=== PATIENT | male | born 1975 | race Hispanic/Latino ===

== ENCOUNTER 2017-05-15 20:39 | Emergency (ER) | payer SELFPAY ==
[2017-05-15 21:03] VITALS: BP 152/91; RESP 18; TEMP 99.2; BMI 19.2
[2017-05-15 21:08] VITALS: PULSE 107; O2SAT 96
--- NOTE | 2017-05-15 21:36 | ED PDOC ---
Arrival/HPI - General Chief Complaint: Dental Pain Time Seen by Provider: 05/15/17 21:00 Historian: Patient - History of Present Illness Narrative History of Present Illness (Text): 05/15/17 21:48 A 41 year old male presents to the emergency department complaining of right upper tooth pain for the past 6 days. Patient notes ear pain but denies any vision changes or any other complaints at this time. Patient smokes and admits to drinking alcohol today. Symptom Onset: Sudden Symptom Course: Unchanged Activities at Onset: Rest Context: Home Past Medical History - Provider Review Nursing Documentation Reviewed: Yes - Infectious Disease Hx of Infectious Diseases: None - Tetanus Immunization Tetanus Immunization: Unknown - Past Medical History Past Medical History: No Previous - Cardiac Hx Cardiac Disorders: Yes Hx Hypertension: Yes - Pulmonary Hx Respiratory Disorders: No Hx Tuberculosis: No - Neurological Hx Neurological Disorder: No HX Cerebrovascular Accident: No Hx Seizures: No - HEENT Hx HEENT Disorder: No - Renal Hx Renal Disorder: No - Endocrine/Metabolic Hx Endocrine Disorders: No - Hematological/Oncological Hx Blood Disorders: No Hx Cancer: No - Integumentary Hx Dermatological Disorder: No - Musculoskeletal/Rheumatological Hx Musculoskeletal Disorders: No Hx Falls: No - Gastrointestinal Hx Gastrointestinal Disorders: No - Genitourinary/Gynecological Hx Genitourinary Disorders: No Hx Sexually Transmitted Diseases: No - Psychiatric Hx Psychophysiologic Disorder: Yes Hx Depression: Yes Hx Emotional Abuse: No Hx Physical Abuse: No Hx Substance Use: Yes Other/Comment: SUBSTANCE ABUSE PROBLEM ALCOHOL - Past Surgical History Past Surgical History: No Previous - Anesthesia Hx Anesthesia: Yes Hx Anesthesia Reactions: No Hx Malignant Hyperthermia: No - Suicidal Assessment Feels Threatened In Home Enviroment: No Family/Social History - Physician Review Nursing Documentation Reviewed: Yes Family/Social History: No Known Family HX Smoking Status: Heavy Smoker > 10 Cigarettes Daily Hx Alcohol Use: Yes Amount per day: 3 Hx Substance Use: Yes Hx Substance Use Treatment: No Allergies/Home Meds Allergies/Adverse Reactions: Allergies Penicillins Allergy (Verified 05/15/17 21:03) RASH Review of Systems - Review of Systems Constitutional: absent: Fevers Eyes: absent: Vision Changes ENT: Other (ear pain and r upper tooth pain) Respiratory: absent: SOB, Cough Cardiovascular: absent: Chest Pain Physical Exam Vital Signs Reviewed: Yes Vital Signs Temp Pulse Resp BP Pulse Ox 05/15/17 21:04 99.2 F 107 H 18 152/91 H 96 05/15/17 21:01 99.2 F 97 H 18 152/91 H 97 Temperature: Afebrile Blood Pressure: Hypertensive Pulse: Regular Respiratory Rate: Normal Appearance: Positive for: Well-Appearing, Non-Toxic, Comfortable Pain Distress: None Mental Status: Positive for: Alert and Oriented X 3 - Systems Exam Head: Present: Atraumatic, Normocephalic. No: Other (facial swelling) Pupils: Present: PERRL Conjunctiva: Present: Normal Mouth: Present: Moist Mucous Membranes, Other (cavity between upper R 2nd premolar and 1st molar with tenderness at gums; no facial erythema, asymetry, swelling) Pharnyx: No: ERYTHEMA, EXUDATE, TONSILS ENLARGED, Peritonsilar Swelling, Uvular Deviation, Muffled/Hoarse Voice, Strider, Soft Palate/Uvular Edema, Other ( swelling) Neck: Present: Normal Range of Motion. No: Other (swelling; adenopathy) Respiratory/Chest: No: Respiratory Distress, Accessory Muscle Use Neurological: Present: GCS=15, CN II-XII Intact, Speech Normal Skin: Present: Warm, Dry, Normal Color. No: Rashes Psychiatric: Present: Alert, Oriented x 3, Normal Insight, Normal Concentration Medical Decision Making ED Course and Treatment: 05/15/17 21:32 Impression: A 41 year old male with tooth and ear pain. Differential Diagnosis included but are not limited to: dental infection, no evidence of abscess or hipolito's Plan: -- Cleocin, Toradol, Percocet -- Reassess and disposition Prior Visits: Notes and results from previous visits were reviewed. Patient last reported to the emergency department on 09/11/16 for evaluation of cellulitis to left posterior thigh. Progress Notes: 05/15/17 21:37 Patient has alcohol on breath, clinically sober. Will discharge patient on antibiotic and need follow up. 05/15/17 22:21 Patient will be d/c on clindamycin, naprosyn, and tramadol and will need to f/u dental. - Medication Orders Current Medication Orders: Discontinued Medications Clindamycin HCl (Cleocin) 300 mg PO STAT STA PRN Reason: Protocol Stop: 05/15/17 21:37 Last Admin: 05/15/17 22:03 Dose: 300 mg Ketorolac Tromethamine (Toradol) 60 mg IM STAT STA Stop: 05/15/17 21:37 Last Admin: 05/15/17 22:03 Dose: 60 mg Oxycodone/Acetaminophen (Percocet 5/325 Mg Tab) 1 tab PO STAT STA Stop: 05/15/17 21:38 Last Admin: 05/15/17 22:03 Dose: 1 tab - Scribe Statement The provider has reviewed the documentation as recorded by the Juan A Briceño Provider Scribe Attestation: All medical record entries made by the Scribe were at my direction and personally dictated by me. I have reviewed the chart and agree that the record accurately reflects my personal performance of the history, physical exam, medical decision making, and the department course for this patient. I have also personally directed, reviewed, and agree with the discharge instructions and disposition. Disposition/Present on Arrival - Present on Arrival Any Indicators Present on Arrival: No History of DVT/PE: No History of Uncontrolled Diabetes: No Urinary Catheter: No History of Decub. Ulcer: No History Surgical Site Infection Following: None - Disposition Have Diagnosis and Disposition been Completed?: Yes Diagnosis: Dental infection Disposition: HOME/ ROUTINE Disposition Time: 22:10 Patient Plan: Discharge Condition: GOOD Discharge Instructions (ExitCare): Toothache (ED) Additional Instructions: Stop alcohol use. Make sure you fill the antibiotic prescription and complete the entire course of antibiotics. Follow up with dentist. Return to the emergency department if any new concerning symptoms. Prescriptions: Clindamycin [Cleocin] 2 cap PO Q6H #80 cap Naproxen [Naprosyn] 500 mg PO BID PRN #30 tab PRN Reason: Pain traMADol [Ultram] 1 tab PO Q8H PRN #15 tab PRN Reason: Pain, Severe (8-10) Referrals: Jordan Man MD [Primary Care Provider] - Follow up with primary Fortino Schafer DMD [Non-Staff] - Follow up with primary
[2017-05-15] MEDS ORDERED: Oxycodone/Acetaminophen 5/325 mg Tab PO STA (21:37)
== END 2017-05-15 22:30 | disposition home or self-care (01) ==
LOC: ED 20:39
DX: K04.7 Periapical abscess without sinus (principal)
CPT/HCPCS: 96372; 99282; J1885

== ENCOUNTER 2017-06-10 18:51 | Emergency (ER) | payer SELFPAY ==
[2017-06-10 18:52] VITALS: BMI 19.2
[2017-06-10 19:39] VITALS: BP 132/68; PULSE 72; RESP 18; TEMP 98.4; O2SAT 99
[2017-06-10] MEDS ORDERED: Tmp-Smz 800 mg-160 mg DS Tab PO STA (19:51)
--- NOTE | 2017-06-10 19:55 | ED PDOC ---
Arrival/HPI - General Chief Complaint: Abnormal Skin Integrity Time Seen by Provider: 06/10/17 19:16 - History of Present Illness Narrative History of Present Illness (Text): 06/10/17 19:52 41 y/o male, allergic to penicillin, c/o painful and itching rash on the both thigh and rt. hip region x 3 days with on change in soap/clothing/detergent. Pt. wears jeans and belt, admits sweats alot and been scratching the rt. hip and both inner thigh region, no fever or chills, no penile discharge or testicular swelling, no palpitation, no night sweat, no other medical or psychological complaints. Past Medical History - Provider Review Nursing Documentation Reviewed: Yes - Infectious Disease Hx of Infectious Diseases: None - Tetanus Immunization Tetanus Immunization: Unknown - Past Medical History Past Medical History: No Previous - Cardiac Hx Cardiac Disorders: Yes Hx Hypertension: Yes - Pulmonary Hx Respiratory Disorders: No Hx Tuberculosis: No - Neurological Hx Neurological Disorder: No HX Cerebrovascular Accident: No Hx Seizures: No - HEENT Hx HEENT Disorder: No - Renal Hx Renal Disorder: No - Endocrine/Metabolic Hx Endocrine Disorders: No - Hematological/Oncological Hx Blood Disorders: No Hx Cancer: No - Integumentary Hx Dermatological Disorder: No - Musculoskeletal/Rheumatological Hx Musculoskeletal Disorders: No Hx Falls: No - Gastrointestinal Hx Gastrointestinal Disorders: No - Genitourinary/Gynecological Hx Genitourinary Disorders: No Hx Sexually Transmitted Diseases: No - Psychiatric Hx Psychophysiologic Disorder: Yes Hx Depression: Yes Hx Emotional Abuse: No Hx Physical Abuse: No Hx Substance Use: Yes Other/Comment: SUBSTANCE ABUSE PROBLEM ALCOHOL - Past Surgical History Past Surgical History: No Previous - Anesthesia Hx Anesthesia: Yes Hx Anesthesia Reactions: No Hx Malignant Hyperthermia: No - Suicidal Assessment Feels Threatened In Home Enviroment: No Family/Social History - Physician Review Nursing Documentation Reviewed: Yes Family/Social History: Unknown Family HX Smoking Status: Heavy Smoker > 10 Cigarettes Daily Hx Alcohol Use: Yes Amount per day: 3 Hx Substance Use: Yes Hx Substance Use Treatment: No Allergies/Home Meds Allergies/Adverse Reactions: Allergies Penicillins Allergy (Verified 05/15/17 21:03) RASH Review of Systems - Review of Systems Constitutional: absent: Fatigue, Fevers Eyes: absent: Vision Changes ENT: absent: Hearing Changes Respiratory: absent: SOB, Cough Cardiovascular: absent: Chest Pain Gastrointestinal: absent: Abdominal Pain, Nausea, Vomiting Skin: Rash, Pruritis, Skin Lesions. absent: Laceration, Abscess, Ulcer, Cellulitis Neurological: absent: Headache, Dizziness Hemo/Lymphatic: absent: Adenopathy, Easy Bleeding Physical Exam Vital Signs Reviewed: Yes Vital Signs Temp Pulse Resp BP Pulse Ox 06/10/17 19:35 98.4 F 72 18 132/68 99 Temperature: Afebrile Blood Pressure: Normal Pulse: Regular Respiratory Rate: Normal Appearance: Positive for: Well-Appearing, Non-Toxic, Comfortable Pain Distress: Moderate Mental Status: Positive for: Alert and Oriented X 3 - Systems Exam Head: Present: Atraumatic, Normocephalic Pupils: Present: PERRL Extroacular Muscles: Present: EOMI Conjunctiva: Present: Normal Mouth: Present: Moist Mucous Membranes Neck: Present: Normal Range of Motion Respiratory/Chest: Present: Clear to Auscultation, Good Air Exchange. No: Respiratory Distress, Accessory Muscle Use Cardiovascular: Present: Regular Rate and Rhythm, Normal S1, S2. No: Murmurs Abdomen: Present: Normal Bowel Sounds. No: Tenderness, Distention, Peritoneal Signs Back: Present: Normal Inspection Upper Extremity: Present: Normal Inspection. No: Cyanosis, Edema Lower Extremity: Present: Normal Inspection. No: Edema Neurological: Present: GCS=15, CN II-XII Intact, Speech Normal Skin: Present: Warm, Dry, Rashes (visible inner bilateral thigh skin fold visible papule round rash appear to be tinea dermatitis along with the rt. hip region and there is mild skin breaking, no obvious cellulitis or streaking, no ulcers. ), Normal Color Psychiatric: Present: Alert, Oriented x 3, Normal Insight, Normal Concentration Medical Decision Making ED Course and Treatment: 06/10/17 19:54 -toradol IM and bactrim ds -Discharge home with lotrisone cream, bactrim ds, motrin, zyrtec, wear loose clothing and pants at home, wear boxers and not tight clothing, follow up with your own pmd and recruitment advertising manager within 2 days, return to the ER for any new or worsening signs or symptoms. - Medication Orders Current Medication Orders: Ketorolac Tromethamine (Toradol) 60 mg IM STAT STA Stop: 06/10/17 19:52 Trimethoprim/Sulfamethoxazole (Bactrim Ds Tab) 1 tab PO STAT STA PRN Reason: Protocol Stop: 06/10/17 19:52 - PA / SQUADRON WORKER / Resident Statement MD/DO has reviewed & agrees with the documentation as recorded. Disposition/Present on Arrival - Present on Arrival Any Indicators Present on Arrival: No History of DVT/PE: No History of Uncontrolled Diabetes: No Urinary Catheter: No History of Decub. Ulcer: No History Surgical Site Infection Following: None - Disposition Have Diagnosis and Disposition been Completed?: Yes Diagnosis: Tinea cruris, Dermatitis Disposition: HOME/ ROUTINE Disposition Time: 19:56 Patient Plan: Discharge Condition: GOOD Additional Instructions: -Discharge home with lotrisone cream, bactrim ds, motrin, zyrtec, wear loose clothing and pants at home, wear boxers and not tight clothing, follow up with your own pmd and recruitment advertising manager within 2 days, return to the ER for any new or worsening signs or symptoms. Prescriptions: Clotrimazole/Betamethasone [Lotrisone] 1 appful TOP BID #60 g DiphenhydrAMINE [Benadryl] 25 mg PO QID PRN #30 cap PRN Reason: Other Ibuprofen [Motrin Tab] 600 mg PO QID PRN #25 tab PRN Reason: Other Sulfamethoxazole/Trimethoprim [Bactrim Ds Tablet] 1 each PO BID #18 tablet Referrals: Angelica Benavidez MD [Staff Provider] - Follow up with primary Forms: [employer] ([place]ian)
== END 2017-06-10 20:14 | disposition home or self-care (01) ==
LOC: ED 18:51
DX: B35.6 Tinea cruris (principal); L30.9 Dermatitis, unspecified
CPT/HCPCS: 96372; 99281; J1885

== ENCOUNTER 2017-06-26 20:25 | Emergency (ER) | payer SELFPAY ==
[2017-06-26 20:25] VITALS: BMI 19.2
--- NOTE | 2017-06-26 20:57 | ED PDOC ---
Arrival/HPI - General Historian: Patient - History of Present Illness Time/Duration: Prior to Arrival <Sheila Lam - Last Filed: 06/27/17 01:29> <Heber Bucio - Last Filed: 06/27/17 06:33> - General Chief Complaint: Alcohol Ingestion Time Seen by Provider: 06/26/17 20:33 - History of Present Illness Narrative History of Present Illness (Text): 06/26/17 20:54 41-year-old male presents to brought in by EMS for alcohol intoxication. Patient admits to drinking alcohol today. Patient states that he's been fighting with his so he went out drinking. He denies fevers or chills. Denies chest pain or shortness of breath. Denies abdominal pain. Patient states he has been on a lot more depressed lately. Patient states that he could shoot himself in the head. Denies vomiting or diarrhea. No other complaints (Sheila Lam) Past Medical History - Provider Review Nursing Documentation Reviewed: Yes - Travel History Have you recently traveled outside [place] w/in the past 3 mons?: No - Infectious Disease Hx of Infectious Diseases: None - Tetanus Immunization Tetanus Immunization: Unknown - Past Medical History Past Medical History: No Previous - Cardiac Hx Cardiac Disorders: Yes Hx Hypertension: Yes - Pulmonary Hx Respiratory Disorders: No Hx Tuberculosis: No - Neurological Hx Neurological Disorder: No HX Cerebrovascular Accident: No Hx Seizures: No - HEENT Hx HEENT Disorder: No - Renal Hx Renal Disorder: No - Endocrine/Metabolic Hx Endocrine Disorders: No - Hematological/Oncological Hx Blood Disorders: No Hx Cancer: No - Integumentary Hx Dermatological Disorder: No - Musculoskeletal/Rheumatological Hx Musculoskeletal Disorders: No Hx Falls: No - Gastrointestinal Hx Gastrointestinal Disorders: No - Genitourinary/Gynecological Hx Genitourinary Disorders: No Hx Sexually Transmitted Diseases: No - Psychiatric Hx Psychophysiologic Disorder: Yes Hx Depression: Yes Hx Emotional Abuse: No Hx Physical Abuse: No Hx Substance Use: Yes Other/Comment: SUBSTANCE ABUSE PROBLEM ALCOHOL - Past Surgical History Past Surgical History: No Previous - Anesthesia Hx Anesthesia: Yes Hx Anesthesia Reactions: No Hx Malignant Hyperthermia: No - Suicidal Assessment Feels Threatened In Home Enviroment: No <Sheila Lam - Last Filed: 06/27/17 01:29> Family/Social History - Physician Review Nursing Documentation Reviewed: Yes Family/Social History: Unknown Family HX Smoking Status: Heavy Smoker > 10 Cigarettes Daily Hx Alcohol Use: Yes Amount per day: 3 Hx Substance Use: Yes Hx Substance Use Treatment: No <Sheila Lam - Last Filed: 06/27/17 01:29> Allergies/Home Meds <Sheila Lam - Last Filed: 06/27/17 01:29> <Heber Bucio - Last Filed: 06/27/17 06:33> Allergies/Adverse Reactions: Allergies Penicillins Allergy (Verified 05/15/17 21:03) RASH Review of Systems - Review of Systems Constitutional: absent: Fatigue, Fevers Cardiovascular: absent: Chest Pain, Palpitations Gastrointestinal: absent: Abdominal Pain, Nausea, Vomiting Musculoskeletal: Arthralgias (right sided facial pain) Neurological: absent: Headache Psychiatric: Depression, Suicidal Ideation <Sheila Lam - Last Filed: 06/27/17 01:29> Physical Exam Vital Signs Reviewed: Yes Temperature: Afebrile Blood Pressure: Normal Pulse: Regular Respiratory Rate: Normal Appearance: Positive for: Well-Appearing, Non-Toxic, Comfortable Pain Distress: None Mental Status: Positive for: Alert and Oriented X 3 - Systems Exam Head: Present: Abrasion (abrasions noted to forehead), Other (+ minimal right sided facial tenderness) Pupils: Present: PERRL Conjunctiva: Present: Normal Mouth: Present: Moist Mucous Membranes Nose (External): Present: Atraumatic Neck: Present: Normal Range of Motion. No: MIDLINE TENDERNESS, Paraspinal Tenderness Respiratory/Chest: Present: Clear to Auscultation Cardiovascular: Present: Regular Rate and Rhythm Abdomen: No: Tenderness, Distention, Rebound, Guarding Back: Present: Normal Inspection. No: Midline Tenderness, Paraspinal Tenderness Upper Extremity: Present: Normal ROM Lower Extremity: Present: Normal ROM Skin: Present: Warm, Dry Psychiatric: Present: Alert, Suicidal Ideation, Intoxicated <Sheila Lam - Last Filed: 06/27/17 01:29> Medical Decision Making <Sheial Lam - Last Filed: 06/27/17 01:29> <Heber Bucio - Last Filed: 06/27/17 06:33> ED Course and Treatment: 06/26/17 20:57 Patient is nontoxic well-appearing in no distress vital signs are stable. intoxicated. CBC WNL CMP WNL Tylenol WNL Salicylate WNL Alcohol level: 317 Urine drug screen: wnl UA; wnl cxr: wnl ekg normal sinus rhythm at 96 bpm normal axis normal intervals no ST elevations pt intoxicated; became aggressive in er; ativan 2mg IM given. CT Head: Brain: Ventricles are normal in size and configuration. There is no midline shift. There is prominence of sulci and gyri greater than expected for a patient of this age. There are no intra-axial or extra-axial mass lesions or areas of hemorrhage. There are no abnormal fluid collections. White-white differentiation is maintained. Ventricles: See above. Bones: Cranial vault is intact. Soft tissues: unremarkable Sinuses: There is no acute sinusitis. Ears and mastoids: Middle ears and mastoids are unremarkable Orbits: Orbital contents are unremarkable. IMPRESSION: No acute intracranial abnormality CT Maxillofacial: Bones/joints: There are no displaced nasal bone fractures. There is deviation of the bony septum to the right. No acute nasal septal fractures identified. There has been a right medial antrectomy with a large bony defect. No facial bone fractures are identified. Soft tissues: There is frontal and facial soft tissue swelling in the midline. There is soft tissue swelling over the nose. There are no facial masses Orbits: Orbital contents are unremarkable. Sinuses: There is no acute sinusitis. Middle ears and mastoids: Middle ears and mastoids are unremarkable. Dental: Streak artifact from dental fillings degrades image quality. There are apical erosions in the mandible on the left There are apical erosions in the maxilla bilaterally. Brain: No focal abnormalities are seen in visualized portion of the brain. IMPRESSION: No acute facial bone fractures; dental disease 06/27/17 01:23 case signed out to dr. bucio pending sobriety and PES evaluation. (Sheila Lam) 06/27/17 01:30 Case endorsed to me by JOSE Lam, pending sobriety and PES evaluation. 06/27/17 06:00 Attempt at interviewing pt. by [facility] was unsuccessful as pt. still with signs of intoxication 06/27/17 07:00 Case endorsed to pending sobriety/PES evaluation. (Heber Bucio ) - Lab Interpretations Lab Results: 06/26/17 23:21 06/26/17 23:21 Lab Results 06/27/17 00:10: Urine Opiates Screen Negative, Urine Methadone Screen Negative, Ur Barbiturates Screen Negative, Ur Phencyclidine Scrn Negative, Ur Amphetamines Screen Negative, U Benzodiazepines Scrn Negative, U Oth Cocaine Metabols Negative, U Cannabinoids Screen Negative 06/27/17 00:10: Urine Color Yellow, Urine Appearance Clear, Urine pH 6.0, Ur Specific Transfer >= 1.030, Urine Protein Negative, Urine Glucose (UA) Negative, Urine Ketones Negative, Urine Blood Negative, Urine Nitrate Negative, Urine Bilirubin Negative, Urine Urobilinogen 0.2, Ur Leukocyte Esterase Negative 06/26/17 23:21: Alcohol, Quantitative 317 H* 06/26/17 23:21: Salicylates < 1 L, Acetaminophen < 10.0 L 06/26/17 23:21: Sodium 148, Potassium 4.5, Chloride 110, Carbon Dioxide 22, Anion Gap 21 H, BUN 6 L, Creatinine 0.6, Est GFR ( Amer) > 60, Est GFR ( Non-Af Amer) > 60, Random Glucose 119 H, Calcium 9.0, Total Bilirubin 0.4, AST 79 H, ALT 34, Alkaline Phosphatase 67, Total Protein 8.1, Albumin 4.4, Globulin 3.7, Albumin/Globulin Ratio 1.2 06/26/17 23:21: WBC 4.6 D, RBC 4.78, Hgb 16.4, Hct 45.9, MCV 96.0, MCH 34.3, MCHC 35.7, RDW 15.8 H, Plt Count 164, MPV 9.4, Gran % 27.3 L, Lymph % (Auto) 61.0 H, [place] % (Auto) 9.1 H, Eos % (Auto) 2.2, Baso % (Auto) 0.4, Gran # 1.26 L , Lymph # 2.8, [place] # 0.4, Eos # 0.1, Baso # 0.02 - RAD Interpretation Radiology Orders: 06/26/17 20:50 HEAD W/O CONTRAST [CT] Stat MAXILLOFACIAL W/O CONTRAST [CT] Stat CHEST PORTABLE [RAD] Stat - Medication Orders Current Medication Orders: Discontinued Medications Lorazepam (Ativan) 2 mg IM ONCE ONE PRN Reason: Protocol Stop: 06/27/17 01:11 Last Admin: 06/27/17 01:25 Dose: 2 mg - PA / PRELIMINARY SCHOOL PSYCHOLOGIST / Resident Statement VENECIA has reviewed & agrees with the documentation as recorded. / has examined the patient and agrees with the treatment plan. <Heber Bucio - Last Filed: 06/27/17 06:33> Disposition/Present on Arrival - Present on Arrival Any Indicators Present on Arrival: No History of DVT/PE: No History of Uncontrolled Diabetes: No Urinary Catheter: No History of Decub. Ulcer: No History Surgical Site Infection Following: None <Sheila Lam - Last Filed: 06/27/17 01:29> - Present on Arrival Any Indicators Present on Arrival: No - Disposition Have Diagnosis and Disposition been Completed?: Yes Disposition Time: 07:00 <Heber Bucio - Last Filed: 06/27/17 06:33> - Disposition Diagnosis: Depression, Alcohol intoxication Condition: STABLE Forms: [employer] (Libyan)
--- NOTE | 2017-06-26 22:35 | CT ---
EXAM: CT Head Without Intravenous Contrast CLINICAL HISTORY: 41 years old, male; Injury or trauma; Fall; Initial encounter; Swelling (edema); Additional info: ETOH, head injury TECHNIQUE: Axial computed tomography images of the head/brain without intravenous contrast. All CT scans at this facility use one or more dose reduction techniques, viz.: automated exposure control; ma/kV adjustment per patient size (including targeted exams where dose is matched to indication; i.e. head); or iterative reconstruction technique. EXAM DATE/TIME: 06/26/2017 8:50 PM COMPARISON: CT - HEAD W/O CONTRAST 04/06/2016 3:08:55 AM FINDINGS: Brain: Ventricles are normal in size and configuration. There is no midline shift. There is prominence of sulci and gyri greater than expected for a patient of this age. There are no intra-axial or extra-axial mass lesions or areas of hemorrhage. There are no abnormal fluid collections. White-white differentiation is maintained. Ventricles: See above. Bones: Cranial vault is intact. Soft tissues: unremarkable Sinuses: There is no acute sinusitis. Ears and mastoids: Middle ears and mastoids are unremarkable Orbits: Orbital contents are unremarkable. IMPRESSION: No acute intracranial abnormality
--- NOTE | 2017-06-26 22:44 | CT ---
EXAM: CT Maxillofacial Without Intravenous Contrast CLINICAL HISTORY: 41 years old, male; Injury or trauma; Fall; Initial encounter; Abrasion; Forehead; Additional info: Right sided facial pain S/P injury TECHNIQUE: Axial computed tomography images of the face without intravenous contrast. All CT scans at this facility use one or more dose reduction techniques, viz.: automated exposure control; ma/kV adjustment per patient size (including targeted exams where dose is matched to indication; i.e. head); or iterative reconstruction technique. EXAM DATE/TIME: 06/26/2017 8:50 PM COMPARISON: CT - HEAD W/O CONTRAST 04/06/2016 3:08:55 AM FINDINGS: Bones/joints: There are no displaced nasal bone fractures. There is deviation of the bony septum to the right. No acute nasal septal fractures identified. There has been a right medial antrectomy with a large bony defect. No facial bone fractures are identified. Soft tissues: There is frontal and facial soft tissue swelling in the midline. There is soft tissue swelling over the nose. There are no facial masses Orbits: Orbital contents are unremarkable. Sinuses: There is no acute sinusitis. Middle ears and mastoids: Middle ears and mastoids are unremarkable. Dental: Streak artifact from dental fillings degrades image quality. There are apical erosions in the mandible on the left There are apical erosions in the maxilla bilaterally. Brain: No focal abnormalities are seen in visualized portion of the brain. IMPRESSION: No acute facial bone fractures; dental disease
[2017-06-26 23:40] LABS: BASO # 0.02 K/mm3 (0.0-2.0); BASO % 0.4 % (0.0-3.0); EOS # 0.1 (0.0-0.7); EOS % 2.2 % (1.5-5.0); GRAN # 1.26 (1.4-6.5); GRAN % 27.3 % (50.0-68.0); HEMOGLOBIN 16.4 g/dL (14.0-18.0); LYMPH # 2.8 (1.2-3.4); MEAN CORPUSCULAR HEMOGLOBIN 34.3 pg (25.0-35.0); MEAN CORPUSCULAR HGB CONC 35.7 g/dl (31.0-37.0); MEAN PLATELET VOLUME 9.4 fl (7.0-11.0); MONO # 0.4 (0.1-0.6); MONO % 9.1 % (1.0-6.0); PLATELET COUNT 164 10^3/uL (120.0-450.0); RBC 4.78 10^6/uL (3.5-6.1); RED CELL DISTRIBUTION WIDTH 15.8 % (11.5-14.5); WHITE BLOOD COUNT 4.6 10^3/ul (4.5-11.0)
[2017-06-26 23:48] LABS: SALICYLATE < 1 mg/dL (2.0-20.0)
[2017-06-26 23:49] LABS: ALB/GLOB RATIO 1.2 (1.1-1.8); ALBUMIN 4.4 g/dL (3.0-4.8); ALT/SGPT 34 U/L (7-56); AST/SGOT 79 U/L (15-59); BLOOD UREA NITROGEN 6 mg/dL (7-21); GFR AFRICAN-AMERICAN > 60; GFR NON-AFRICAN AMERICAN > 60
[2017-06-26 23:51] LABS: ACETAMINOPHEN < 10.0 ug/ml (10.0-20.0)
[2017-06-27 00:22] LABS: URINE BILIRUBIN NEGATIVE (NEGATIVE); URINE BLOOD NEGATIVE (NEGATIVE); URINE GLUCOSE (UA) NEGATIVE (NEGATIVE); URINE LEUKOCYTE ESTERASE NEGATIVE Leu/uL (NEGATIVE); URINE NITRATE NEGATIVE (NEGATIVE); URINE PROTEIN NEGATIVE mg/dL (<30 mg/dL); URINE UROBILINOGEN 0.2 E.U./dL (<1 E.U./dL)
[2017-06-27 00:23] LABS: URINE APPEARANCE CLEAR (CLEAR); URINE COLOR YELLOW (YELLOW)
[2017-06-27 00:43] LABS: BARBITURATES, UR NEGATIVE (NEGATIVE); BENZODIAZEPINES, UR NEGATIVE (NEGATIVE); OPIATES, UR NEGATIVE (NEGATIVE); PHENCYCLIDINE, UR NEGATIVE (NEGATIVE)
--- NOTE | 2017-06-27 07:51 | RAD ---
HISTORY: pes eval COMPARISON: 05/03/2016. FINDINGS: LUNGS: No active pulmonary disease. PLEURA: No significant pleural effusion identified, no pneumothorax apparent. CARDIOVASCULAR: No radiographic findings to suggest acute or significant cardiovascular disease. OSSEOUS STRUCTURES: No significant abnormalities. VISUALIZED UPPER ABDOMEN: Normal. OTHER FINDINGS: None. IMPRESSION: No active disease. No significant interval change compared to the prior examination(s).
[2017-06-27 08:12] VITALS: BP 143/85
[2017-06-27 09:11] VITALS: PULSE 75; RESP 16; TEMP 98.2; O2SAT 98
--- NOTE | 2017-06-27 13:18 | CARD ---
APPROVED REPORT EKG Measurement Heart [id number] <Conclusion> Normal sinus rhythm Normal ECG
== END 2017-06-27 09:11 | disposition home or self-care (01) ==
LOC: ED 20:25
DX: F10.129 Alcohol abuse with intoxication, unspecified (principal); Y90.8 Blood alcohol level of 240 mg/100 ml or more; F32.9 Major depressive disorder, single episode, unspecified; I10 Essential (primary) hypertension; F17.210 Nicotine dependence, cigarettes, uncomplicated
CPT/HCPCS: 70450; 70486; 71010; 80053; 81003; 85025; 90791; 93005; 96372; 99284; G0480; J2060

== ENCOUNTER 2017-08-19 18:23 | Emergency (ER) | payer SELFPAY ==
[2017-08-19 18:23] VITALS: BMI 19.2
[2017-08-19 19:00] VITALS: BP 128/74; PULSE 89; RESP 16; TEMP 98.8; O2SAT 98
--- NOTE | 2017-08-19 19:50 | ED PDOC ---
Arrival/HPI <Heber Mccartney - Last Filed: 08/19/17 20:14> - General Historian: Patient - History of Present Illness Time/Duration: < week Symptom Onset: Sudden Symptom Course: Unchanged Quality: Stabbing Severity Level: Severe <Aracelis Cruz - Last Filed: 08/19/17 21:54> - General Chief Complaint: Abnormal Skin Integrity Time Seen by Provider: 08/19/17 19:45 - History of Present Illness Narrative History of Present Illness (Text): 08/19/17 19:46 41 M w/PMH sig for herpes zoster outbreak evaluated for skin rash x 3 days. Pt reports similar episodes x 2, not currently on suppressive therapy. Pt reports severe pain over area of skin rash with radiation down the posterior aspect of the right leg and B/L groin area. Denies recent illness, N/V/F/C, shortness of breath, chest pain, ab pain, headache, other complaints. PMH: Hx brain infection (fungal), hx herpes zoster skin rash PSH: Right hand 2nd digit sx All: PCN SH: Admits to ETOH use, tobacco use 5ppd x 25yrs, denies illicit drugs PMD: Suczewki (Aracelis Cruz) Modifying Factors (Text): 08/19/17 19:51 None identified (Aracelis Cruz) Associated Symptoms (Text): 08/19/17 19:51 None (Aracelis Cruz) Past Medical History - Provider Review Nursing Documentation Reviewed: Yes - Infectious Disease Hx of Infectious Diseases: None - Tetanus Immunization Tetanus Immunization: Unknown - Past Medical History Past Medical History: No Previous - Cardiac Hx Cardiac Disorders: Yes Hx Hypertension: Yes - Pulmonary Hx Tuberculosis: No - Neurological HX Cerebrovascular Accident: No Hx Seizures: No - HEENT Hx HEENT Disorder: No - Renal Hx Renal Disorder: No - Endocrine/Metabolic Hx Endocrine Disorders: No - Hematological/Oncological Hx Cancer: No - Integumentary Hx Dermatological Disorder: No - Musculoskeletal/Rheumatological Hx Musculoskeletal Disorders: No Hx Falls: No - Gastrointestinal Hx Gastrointestinal Disorders: No - Genitourinary/Gynecological Hx Sexually Transmitted Diseases: No - Psychiatric Hx Psychophysiologic Disorder: Yes Hx Depression: Yes Hx Emotional Abuse: No Hx Physical Abuse: No Hx Substance Use: Yes Other/Comment: SUBSTANCE ABUSE PROBLEM ALCOHOL - Past Surgical History Past Surgical History: No Previous - Anesthesia Hx Anesthesia: Yes - Suicidal Assessment Feels Threatened In Home Enviroment: No <CruzAracelis rojas - Last Filed: 08/19/17 21:54> Family/Social History - Physician Review Nursing Documentation Reviewed: Yes Family/Social History: No Known Family HX Smoking Status: Heavy Smoker > 10 Cigarettes Daily Hx Alcohol Use: Yes Amount per day: 3 Hx Substance Use: Yes Hx Substance Use Treatment: No <Aracelis Cruz - Last Filed: 08/19/17 21:54> Allergies/Home Meds <Heber Mccartney - Last Filed: 08/19/17 20:14> <Poppy Cruzne - Last Filed: 08/19/17 21:54> Allergies/Adverse Reactions: Allergies Penicillins Allergy (Verified 08/19/17 18:55) RASH Review of Systems - Physician Review All systems were reviewed & negative as marked: Yes - Review of Systems Constitutional: Normal Eyes: Normal ENT: Normal Respiratory: Normal Cardiovascular: Normal Gastrointestinal: Normal Musculoskeletal: Back Pain Skin: Rash Neurological: Normal <CruzAracelis - Last Filed: 08/19/17 21:54> Physical Exam Vital Signs Reviewed: Yes Temperature: Afebrile Blood Pressure: Normal Pulse: Regular Respiratory Rate: Normal Appearance: Positive for: Non-Toxic, Uncomfortable Pain Distress: Mild Mental Status: Positive for: Alert and Oriented X 3 - Systems Exam Head: Present: Atraumatic, Normocephalic Extroacular Muscles: Present: EOMI Conjunctiva: Present: Normal Mouth: Present: Moist Mucous Membranes Nose (External): Present: Atraumatic Neck: Present: Normal Range of Motion Respiratory/Chest: Present: Clear to Auscultation, Good Air Exchange. No: Respiratory Distress, Accessory Muscle Use Cardiovascular: Present: Regular Rate and Rhythm, Normal S1, S2. No: Murmurs Abdomen: Present: Normal Bowel Sounds. No: Tenderness, Distention, Peritoneal Signs Back: Present: Paraspinal Tenderness Upper Extremity: Present: Normal Inspection. No: Cyanosis, Edema Lower Extremity: Present: Tenderness (medial aspects B/L). No: Normal Inspection, Edema Neurological: Present: GCS=15, CN II-XII Intact, Speech Normal Skin: Present: Warm, Dry, Rashes (over right lower abdomen, B/L groin, medial aspect of B/L thighs, papular, well circumscribed circular vesicular lesions, diffuse over area) Psychiatric: Present: Alert, Oriented x 3, Normal Insight, Normal Concentration <Aracelis Cruz - Last Filed: 08/19/17 21:54> Vital Signs Temp Pulse Resp BP Pulse Ox 08/19/17 18:56 98.8 F 89 16 128/74 98 Medical Decision Making <Heber Mccartney - Last Filed: 08/19/17 20:14> <Aracelis Cruz - Last Filed: 08/19/17 21:54> ED Course and Treatment: 08/19/17 20:14 Pt. seen and evaluated with the medical technologist generalist.Agree with HPI,clinical findings,treatment plan. (Heber Mccartney) 08/19/17 19:54 Pt seen/evaluated, with herpes zoster rash, will start antiviral treatment and give pain medication (Aracelis Cruz) - Medication Orders Current Medication Orders: Discontinued Medications Acyclovir (Zovirax) 800 mg PO ONCE ONE PRN Reason: Protocol Stop: 08/19/17 19:46 Last Admin: 08/19/17 20:21 Dose: 800 mg Tramadol HCl (Ultram) 50 mg PO STAT STA Stop: 08/19/17 19:46 Last Admin: 08/19/17 20:21 Dose: 50 mg MAR Pain Assessment Document 08/19/17 20:21 ME (Rec: 08/19/17 20:21 ME [id number]) Pain Reassessment Is this a pain reassessment? No Sleep Is patient sleeping during reassessment? No Presence of Pain Presence of Pain Yes Pain Scale Used Pain Scale Used Numeric Description Description Constant Intensity of Pain at present 5 - PA / REPAIRER HELPER / Resident Statement /DO has reviewed & agrees with the documentation as recorded. /DO has examined the patient and agrees with the treatment plan. <Heber Mccartney - Last Filed: 08/19/17 20:14> Disposition/Present on Arrival <Heber Mccartney - Last Filed: 08/19/17 20:14> - Present on Arrival Any Indicators Present on Arrival: No History of DVT/PE: No History of Uncontrolled Diabetes: No Urinary Catheter: No History of Decub. Ulcer: No History Surgical Site Infection Following: None - Disposition Have Diagnosis and Disposition been Completed?: Yes Disposition Time: 19:55 Patient Plan: Discharge <Aracelis Cruz - Last Filed: 08/19/17 21:54> - Disposition Diagnosis: Herpes zoster Disposition: HOME/ ROUTINE Condition: STABLE Discharge Instructions (ExitCare): Shingles (ED) Additional Instructions: Please take prescriptions as written. Prescriptions: RX: Acyclovir 800 mg PO 5XD #35 tablet Capsaicin [Zostrix] 60 gm TP TID #1 cream..g. Ibuprofen [Motrin Tab] 800 mg PO Q6H PRN #12 tab PRN Reason: Pain, Severe (8-10) Referrals: Jordan Man MD [Staff Provider] - Follow up with primary Forms: [employer] (Malay)
== END 2017-08-19 20:25 | disposition home or self-care (01) ==
LOC: ED 18:23
DX: B02.9 Zoster without complications (principal)

== ENCOUNTER 2018-01-21 15:40 | Emergency (ER) | payer MEDICAID, OTHER ==
[2018-01-21 15:40] VITALS: BMI 19.2
[2018-01-21 15:47] VITALS: BP 141/95
[2018-01-21] MEDS ORDERED: Tmp-Smz 800 mg-160 mg DS Tab PO STA (16:11)
--- NOTE | 2018-01-21 16:22 | ED PDOC ---
Arrival/HPI - General Chief Complaint: Abnormal Skin Integrity Time Seen by Provider: 01/21/18 15:51 Historian: Patient - History of Present Illness Narrative History of Present Illness (Text): 01/21/18 16:00 This 42 yo male with pmh alcohol abuse, presents to this ED c/o left facial abscess x 2 days. Patient stated symptoms has worsen today. Patient denies fever, sob, cp, abdominal pain, urinary symptoms, or facial swelling. Time/Duration: Other (see hpi) Context: Home Past Medical History - Provider Review Nursing Documentation Reviewed: Yes - Infectious Disease Hx of Infectious Diseases: None - Tetanus Immunization Tetanus Immunization: Unknown - Past Medical History Past Medical History: No Previous - Cardiac Hx Cardiac Disorders: Yes Hx [place]: Yes Hx Hypertension: Yes - Pulmonary Hx Tuberculosis: No - Neurological HX Cerebrovascular Accident: No Hx Seizures: No - HEENT Hx HEENT Disorder: No - Renal Hx Renal Disorder: No - Endocrine/Metabolic Hx Endocrine Disorders: No - Hematological/Oncological Hx Cancer: No - Integumentary Hx Dermatological Disorder: No - Musculoskeletal/Rheumatological Hx Musculoskeletal Disorders: No Hx Falls: No - Gastrointestinal Hx Gastrointestinal Disorders: No - Genitourinary/Gynecological Hx Sexually Transmitted Diseases: No - Psychiatric Hx Psychophysiologic Disorder: Yes Hx Depression: Yes Hx Emotional Abuse: No Hx Physical Abuse: No Hx Substance Use: No Other/Comment: SUBSTANCE ABUSE PROBLEM ALCOHOL - Past Surgical History Past Surgical History: No Previous - Anesthesia Hx Anesthesia: Yes - Suicidal Assessment Feels Threatened In Home Enviroment: No Family/Social History - Physician Review Nursing Documentation Reviewed: Yes Family/Social History: Other (noncontributory) Smoking Status: Heavy Smoker > 10 Cigarettes Daily Hx Alcohol Use: Yes Frequency of alcohol use: Daily Amount per day: 3 Hx Substance Use: No Hx Substance Use Treatment: No Allergies/Home Meds Allergies/Adverse Reactions: Allergies Penicillins Allergy (Verified 01/21/18 15:47) RASH Review of Systems - Review of Systems Constitutional: Normal. absent: Fatigue, Weight Change, Fevers, Night Sweats Eyes: Normal ENT: Normal Respiratory: Normal Cardiovascular: Normal Gastrointestinal: Normal Genitourinary Male: Normal Musculoskeletal: Normal Skin: Abscess Neurological: Normal Endocrine: Normal Hemo/Lymphatic: Normal Psychiatric: Normal Physical Exam Vital Signs Temp Pulse Resp BP Pulse Ox 01/21/18 16:47 19 99 01/21/18 16:34 98.1 F 98 H 18 99 01/21/18 15:43 97.9 F 108 H 18 141/95 H 97 Temperature: Afebrile Blood Pressure: Normal Pulse: Regular Respiratory Rate: Normal Appearance: Positive for: Well-Appearing, Non-Toxic, Comfortable Pain Distress: None Mental Status: Positive for: Alert and Oriented X 3 - Systems Exam Head: Present: Atraumatic, Normocephalic Mouth: Present: Moist Mucous Membranes Upper Extremity: Present: Normal Inspection, Normal ROM Lower Extremity: Present: Normal Inspection, Normal ROM Neurological: Present: GCS=15, CN II-XII Intact, Speech Normal, Motor Func Grossly Intact, Normal Sensory Function, Normal Cerebellar Funct, Gait Normal Skin: Present: Warm, Dry, Normal Color, Abscess (left facial abscess). No: Rashes Psychiatric: Present: Alert, Oriented x 3, Normal Insight, Normal Concentration Medical Decision Making ED Course and Treatment: 01/21/18 16:31 Re-evaluation. Patient feels better. Discussed results and plan with patient who expresses understanding. All questions answered and there is agreement with the plan to discharge home with instructions. Patient stable for discharge. Return if symptoms persist or worsen. Patient was recommended to return to ED in 2 days, and to keep wound clean and dry for 2 days. Re-evaluation Time: 16:31 Reassessment Condition: Re-examined - Medication Orders Current Medication Orders: Discontinued Medications Ibuprofen (Motrin Tab) 600 mg PO STAT STA Stop: 01/21/18 16:13 Last Admin: 01/21/18 16:22 Dose: 600 mg MAR Pain/Vitals Document 01/21/18 16:22 CAST (Rec: 01/21/18 16:22 [facility] [id number]) Pain Reassessment Is This A Pain ReAssessment? No Sleep Is patient sleeping during reassessment? No Presence of Pain Presence of Pain Yes Pain Scale Used Pain Scale Used Numeric Location Left, Right or Bilateral Left Pain Location Body Site Face Description Constant Intensity 8 Scale Used Numeric Pain Behavior Facial Grimacing Aggravating Factors Changing Position Alleviating Factors Medication Trimethoprim/Sulfamethoxazole (Bactrim Ds Tab) 1 tab PO STAT STA PRN Reason: Protocol Stop: 01/21/18 16:12 Last Admin: 01/21/18 16:21 Dose: 1 tab - Procedure PROCEDURE NOTE (Text): 01/21/18 16:32 PROCEDURE: I&D Performed by the emergency provider Indication: facial abscess Location: left side of face Preparation: Local infiltration of {anesthetic} was used for anesthesia. Procedure: The most fluctuant portion was incised with a #11 scalpel. Abscess was drained, 5cc of pus drained. A dressing was applied. Post-Procedure: On exam the abscess is notably less fluctuant. The patient tolerated the procedure well, and there were no complications. Disposition/Present on Arrival - Present on Arrival Any Indicators Present on Arrival: No History of DVT/PE: No History of Uncontrolled Diabetes: No Urinary Catheter: No History of Decub. Ulcer: No History Surgical Site Infection Following: None - Disposition Have Diagnosis and Disposition been Completed?: Yes Diagnosis: Facial abscess Disposition: HOME/ ROUTINE Disposition Time: 16:32 Patient Plan: Discharge Condition: IMPROVED Discharge Instructions (ExitCare): Abscess Incision and Drainage Additional Instructions: Call private doctor for follow up visit in 2 days. Keep wound clean and dry for 2 days. Return to emergency if unable to see your doctor Prescriptions: Ibuprofen [Motrin] 600 mg PO Q8 PRN #20 tab PRN Reason: Pain, Severe (8-10) Sulfamethoxazole/Trimethoprim [Bactrim DS 800 mg-160 mg] 1 tab PO BID #14 tab Referrals: [facility] [Outside] - Follow up with primary [facility] [Outside] - Follow up with primary Forms: [employer] (Syrian)
[2018-01-21 16:34] VITALS: PULSE 98; TEMP 98.1; O2SAT 99
[2018-01-21 16:48] VITALS: RESP 19
== END 2018-01-21 16:48 | disposition home or self-care (01) ==
LOC: ED 15:40
DX: L02.01 Cutaneous abscess of face (principal)

== ENCOUNTER 2018-01-22 20:46 | Emergency (ER) | payer MEDICAID, OTHER ==
[2018-01-22 20:47] VITALS: BMI 19.2
[2018-01-22 21:18] VITALS: BP 145/89; PULSE 97; RESP 18; TEMP 98.6; O2SAT 97
--- NOTE | 2018-01-22 21:32 | ED PDOC ---
Arrival/HPI - General Chief Complaint: Abnormal Skin Integrity Time Seen by Provider: 01/22/18 20:52 Historian: Patient, Spouse - History of Present Illness Narrative History of Present Illness (Text): 01/22/18 21:15 This 42 yo male presents to this ED for wound check. Patient stated he accidentally removed packing from his facial wound early today. Denies other complains. Patient had an I&D yesterday Time/Duration: Other (see hpi) Context: Home Past Medical History - Provider Review Nursing Documentation Reviewed: Yes - Infectious Disease Hx of Infectious Diseases: None - Tetanus Immunization Tetanus Immunization: Unknown - Past Medical History Past Medical History: No Previous - Cardiac Hx Cardiac Disorders: Yes Hx [place]: Yes Hx Hypertension: Yes - Pulmonary Hx Tuberculosis: No - Neurological HX Cerebrovascular Accident: No Hx Seizures: No - HEENT Hx HEENT Disorder: No - Renal Hx Renal Disorder: No - Endocrine/Metabolic Hx Endocrine Disorders: No - Hematological/Oncological Hx Cancer: No - Integumentary Hx Dermatological Disorder: No - Musculoskeletal/Rheumatological Hx Musculoskeletal Disorders: No Hx Falls: No - Gastrointestinal Hx Gastrointestinal Disorders: No - Genitourinary/Gynecological Hx Sexually Transmitted Diseases: No - Psychiatric Hx Psychophysiologic Disorder: Yes Hx Depression: Yes Hx Emotional Abuse: No Hx Physical Abuse: No Hx Substance Use: No Other/Comment: SUBSTANCE ABUSE PROBLEM ALCOHOL - Past Surgical History Past Surgical History: No Previous - Anesthesia Hx Anesthesia: Yes Hx Anesthesia Reactions: No Hx Malignant Hyperthermia: No - Suicidal Assessment Feels Threatened In Home Enviroment: No Family/Social History - Physician Review Nursing Documentation Reviewed: Yes Family/Social History: Other (noncontributory) Smoking Status: Heavy Smoker > 10 Cigarettes Daily Hx Alcohol Use: Yes Amount per day: 3 Hx Substance Use: No Hx Substance Use Treatment: No Allergies/Home Meds Allergies/Adverse Reactions: Allergies Penicillins Allergy (Verified 01/21/18 15:47) RASH Review of Systems - Review of Systems Constitutional: Normal. absent: Fatigue, Weight Change, Fevers Eyes: Normal ENT: Normal Respiratory: Normal Cardiovascular: Normal Gastrointestinal: Normal Genitourinary Male: Normal Musculoskeletal: Normal Skin: Other (facial wound recheck) Neurological: Normal Endocrine: Normal Hemo/Lymphatic: Normal Psychiatric: Normal Physical Exam Vital Signs Temp Pulse Resp BP Pulse Ox 01/22/18 20:47 98.6 F 97 H 18 145/89 97 Temperature: Afebrile Blood Pressure: Normal Pulse: Regular Respiratory Rate: Normal Appearance: Positive for: Well-Appearing, Non-Toxic, Comfortable Pain Distress: None Mental Status: Positive for: Alert and Oriented X 3 - Systems Exam Head: Present: Atraumatic, Normocephalic Mouth: Present: Moist Mucous Membranes Neck: Present: Normal Range of Motion Upper Extremity: Present: Normal Inspection, Normal ROM Lower Extremity: Present: Normal Inspection, Normal ROM Neurological: Present: GCS=15, CN II-XII Intact, Speech Normal Skin: Present: Warm, Dry, Normal Color, Other ((+) left facial wound is healing well. No drainage or erythema, or swelling). No: Rashes Psychiatric: Present: Alert, Oriented x 3, Normal Insight, Normal Concentration Medical Decision Making ED Course and Treatment: 01/22/18 21:32 Re-evaluation. Patient feels better. Discussed results and plan with patient who expresses understanding. All questions answered and there is agreement with the plan to discharge home with instructions. Patient stable for discharge. Return if symptoms persist or worsen. Re-evaluation Time: 21:32 Reassessment Condition: Re-examined, Improved Disposition/Present on Arrival - Present on Arrival Any Indicators Present on Arrival: No History of DVT/PE: No History of Uncontrolled Diabetes: No Urinary Catheter: No History of Decub. Ulcer: No History Surgical Site Infection Following: None - Disposition Have Diagnosis and Disposition been Completed?: Yes Diagnosis: Encounter for wound re-check Disposition: HOME/ ROUTINE Disposition Time: 21:32 Patient Plan: Discharge Condition: GOOD Additional Instructions: Call private doctor or clinic for follow up visit in 1-2 days. Clean wound daily with soap and water. Continue with antibiotic as instructed. Return to emergency if wound infection worsen. Referrals: Avelino Man MD [Primary Care Provider] - Follow up with primary
== END 2018-01-22 21:59 | disposition home or self-care (01) ==
LOC: ED 20:46
DX: Z51.89 Encounter for other specified aftercare (principal)

== ENCOUNTER 2018-01-31 02:26 | Emergency (ER) | payer MEDICAID, OTHER ==
[2018-01-31 02:26] VITALS: BMI 19.2
[2018-01-31 02:43] VITALS: BP 113/83; RESP 17
[2018-01-31] MEDS ORDERED: TDAP Vaccine 0.5 mL Syr IM ONE (02:58)
[2018-01-31 02:59] VITALS: PULSE 92; TEMP 98.1; O2SAT 99
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
== END 2018-01-31 04:18 | disposition home or self-care (01) ==
LOC: ED 02:26
DX: S01.112A Laceration without foreign body of left eyelid and periocular area, initial encounter (principal); Y04.8XXA Assault by other bodily force, initial encounter; Y92.009 Unspecified place in unspecified non-institutional (private) residence as the place of occurrence of the external cause; I10 Essential (primary) hypertension; F17.210 Nicotine dependence, cigarettes, uncomplicated; Z23 Encounter for immunization

== ENCOUNTER 2018-02-02 05:08 | Emergency (ER) | payer MEDICAID ==
[2018-02-02 05:09] VITALS: BMI 19.2
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
[2018-02-02] MEDS ORDERED: Aztreonam 2 Gm in NS 100mL 100 ML IVPB STA (05:56)
[2018-02-02] MEDS ORDERED: Morphine 2 mg/ml ISec IVP STA (06:01)
[2018-02-02] MEDS ORDERED: Vancomycin 1gm in NS 250ml 1 GM/250 ML BAG IVPB STA (06:10)
[2018-02-02 07:02] LABS: VENOUS BLOOD GAS BASE EXCESS -0.3 mmol/L (0.0-2.0); VENOUS BLOOD GAS PO2 29 mm/Hg (30-55); VENOUS BLOOD PH 7.27 (7.32-7.43)
[2018-02-02] MEDS ORDERED: DiphenhydrAMINE 50 mg/ml Inj IVP ONE (07:03)
[2018-02-02 07:05] LABS: HEMOGLOBIN 15.5 g/dL (14.0-18.0); MEAN CELL VOLUME 93.1 fl (80.0-105.0); MEAN CORPUSCULAR HEMOGLOBIN 33.3 pg (25.0-35.0); MEAN CORPUSCULAR HGB CONC 35.7 g/dl (31.0-37.0); RBC 4.66 10^6/uL (3.5-6.1); RED CELL DISTRIBUTION WIDTH 16.4 % (11.5-14.5); WHITE BLOOD COUNT 4.8 10^3/ul (4.5-11.0)
--- NOTE | 2018-02-02 07:17 | ED PDOC ---
Physical Exam Vital Signs Reviewed: Yes Vital Signs Pulse Resp BP Pulse Ox 02/02/18 08:27 78 18 126/70 99 02/02/18 07:31 98 H 18 115/58 L 97 02/02/18 05:49 101 H 20 134/77 95 Blood Pressure: Normal Pulse: Tachycardic Respiratory Rate: Normal Appearance: Positive for: Well-Appearing, Non-Toxic, Comfortable Pain Distress: None Mental Status: Positive for: Alert and Oriented X 3 Medical Decision Making ED Course and Treatment: 02/02/18 07:16 Case signed out to me by Dr. Mccartney. Patient requires admission to the hospital. Pending EKG, labs and disposition. 02/02/18 08:37 CT HEAD WITHOUT CONTRAST Creator : Jordan Leonard MD IMPRESSION: No acute intracranial findings. 02/02/18 08:46 Patient re-examined by me. Afebrile. Alert. Oriented. As patient with recent head injury and complains of persistent headache and nausea. Head ct repeated from 2 days ago. Results noted above. On re-exam, neuro intact. NO PAIN WITH EYE MOVEMENTS. No acute visual disturbance currently noted. IV antibiotics ordered from previous shift. Patient to be admitted for cellulitis with failure of outpatient therapy. Given risk of alcohol withdrawal will admit to remote tele, patient accepted to hospitalist service. - Lab Interpretations Lab Results: 02/02/18 06:50 02/02/18 06:50 Lab Results 02/02/18 06:50: pO2 29 L, VBG pH 7.27 L, VBG pCO2 61.0 H, VBG HCO3 28.0, VBG Total CO2 29.9 H, VBG O2 Sat (Calc) 68.1 H, VBG Base Excess -0.3 L, VBG Potassium 3.8, Sodium 138.0, Chloride 107.0, Glucose 151 H, Lactate 1.2, FiO2 21.0, Venous Blood Potassium 3.8 02/02/18 06:50: PT 11.4, INR 0.99, APTT 32.2 02/02/18 06:50: WBC 4.8, RBC 4.66, Hgb 15.5, Hct 43.4, MCV 93.1, MCH 33.3, MCHC 35.7, RDW 16.4 H, Plt Count 161, MPV 9.0 02/02/18 06:50: Sodium 144, Chloride 105, Potassium 3.9, Carbon Dioxide 26, Anion Gap 17, BUN 6 L, Creatinine 0.7 L, Est GFR ( Amer) > 60, Est GFR ( Non-Af Amer) > 60, Random Glucose 146 H, Calcium 9.0, Total Bilirubin 0.4, AST 46, ALT 46, Alkaline Phosphatase 66, Total Protein 7.7, Albumin 4.0, Globulin 3.7, Albumin/Globulin Ratio 1.1 I have reviewed the lab results: Yes - RAD Interpretation Radiology Orders: 02/02/18 05:56 CHEST PORTABLE [RAD] Stat - Medication Orders Current Medication Orders: Multivitamins/Vitamin C 10 ml/Thiamine HCl 100 mg/ Folic Acid 1 mg/ Sodium Chloride 1,011.2 mls @ 100 mls/hr IV .Q10H7M ONE Stop: 02/02/18 18:09 Lorazepam (Ativan) 1 mg IVP Q2H PRN; Protocol PRN Reason: Seizure activity Discontinued Medications Diphenhydramine HCl (Benadryl) 25 mg IVP ONCE ONE Stop: 02/02/18 07:04 Last Admin: 02/02/18 07:08 Dose: 25 mg IVP Administration Document 02/02/18 07:08 IT (Rec: 02/02/18 07:08 IT [facility] [id number][place] Charges for Administration # of IVP Administrations 1 Aztreonam (Azactam 2 Gm) 100 mls @ 100 mls/hr IVPB STAT STA PRN Reason: Protocol Stop: 02/02/18 06:55 Last Admin: 02/02/18 06:59 Dose: 100 mls/hr eMAR Start Stop Document 02/02/18 06:59 IT (Rec: 02/02/18 06:59 IT [facility] [id number]) Intravenous Solution Start Date 02/02/18 Start Time 06:59 Vancomycin HCl (Vancomycin 1gm) 1 gm in 250 mls @ 167 mls/hr IVPB STAT STA PRN Reason: Protocol Stop: 02/02/18 07:39 Last Admin: 02/02/18 08:20 Dose: 167 mls/hr eMAR Start Stop Document 02/02/18 08:20 [facility] (Rec: 02/02/18 08:21 [facility] [id number]) Intravenous Solution Start Date 02/02/18 Start Time 08:21 End Date 02/02/18 End time 10:00 Total Infusion Time 99 Morphine Sulfate (Morphine) 2 mg IVP STAT STA Stop: 02/02/18 06:02 Last Admin: 02/02/18 06:59 Dose: 2 mg MAR Pain Assessment Document 02/02/18 06:59 IT (Rec: 02/02/18 06:59 IT [facility]-[id number]) Pain Reassessment Is this a pain reassessment? No Sleep Is patient sleeping during reassessment? No Presence of Pain Presence of Pain Yes Pain Scale Used Pain Scale Used Numeric Location Left, Right or Bilateral Bilateral Pain Location Body Senior Tax Specialist IVP Administration Document 02/02/18 06:59 IT (Rec: 02/02/18 06:59 IT [id number]) Charges for Administration # of IVP Administrations 1 Ondansetron HCl (Zofran Inj) 4 mg IVP ONCE ONE Stop: 02/02/18 06:03 Last Admin: 02/02/18 06:59 Dose: 4 mg IVP Administration Document 02/02/18 06:59 IT (Rec: 02/02/18 06:59 IT [facility]-[id number]) Charges for Administration # of IVP Administrations 1 - Scribe Statement The provider has reviewed the documentation as recorded by the Juan A Briceño Provider Scribe Attestation: All medical record entries made by the Scribe were at my direction and personally dictated by me. I have reviewed the chart and agree that the record accurately reflects my personal performance of the history, physical exam, medical decision making, and the department course for this patient. I have also personally directed, reviewed, and agree with the discharge instructions and disposition. Disposition/Present on Arrival - Present on Arrival Any Indicators Present on Arrival: No History of DVT/PE: No History of Uncontrolled Diabetes: No Urinary Catheter: No History of Decub. Ulcer: No History Surgical Site Infection Following: None - Disposition Have Diagnosis and Disposition been Completed?: Yes Diagnosis: Cellulitis Disposition: HOSPITALIZED Disposition Time: 07:45 Patient Plan: Admission Patient Problems: Current Active Problems Problem Status Onset Cellulitis Acute Condition: STABLE
[2018-02-02 07:19] LABS: ALB/GLOB RATIO 1.1 (1.1-1.8); ALT/SGPT 46 U/L (7-56); AST/SGOT 46 U/L (17-59); BLOOD UREA NITROGEN 6 mg/dL (7-21); GFR AFRICAN-AMERICAN > 60; GFR NON-AFRICAN AMERICAN > 60
[2018-02-02 07:26] LABS: INR 0.99 (0.93-1.08); PARTIAL THROMBOPLASTIN TIME 32.2 Seconds (25.1-36.5); PROTHROMBIN TIME 11.4 SECONDS (9.4-12.5)
[2018-02-02 07:31] VITALS: RESP 18
[2018-02-02] MEDS ORDERED: Multivitamin (MVI) 10 ML, Thiamine 100 MG, Folic Acid 1 MG in Sodium Chloride 0.9% 1,00... IV ONE (08:03)
[2018-02-02 08:09] LABS: URINE BILIRUBIN NEGATIVE (NEGATIVE); URINE BLOOD NEGATIVE (NEGATIVE); URINE GLUCOSE (UA) NEGATIVE (NEGATIVE); URINE LEUKOCYTE ESTERASE NEGATIVE Leu/uL (NEGATIVE); URINE PROTEIN NEGATIVE mg/dL (<30 mg/dL); URINE UROBILINOGEN 0.2 E.U./dL (<1 E.U./dL)
[2018-02-02 08:14] LABS: URINE APPEARANCE CLEAR (CLEAR); URINE COLOR LIGHT YELLOW (YELLOW)
--- NOTE | 2018-02-02 08:20 | RAD ---
HISTORY: Sepsis Patient COMPARISON: 06/26/2017 FINDINGS: LUNGS: No active pulmonary disease. PLEURA: No significant pleural effusion identified, no pneumothorax apparent. CARDIOVASCULAR: Normal. OSSEOUS STRUCTURES: No significant abnormalities. VISUALIZED UPPER ABDOMEN: Normal. OTHER FINDINGS: None. IMPRESSION: No active disease.
--- NOTE | 2018-02-02 08:35 | CT ---
PROCEDURE: CT HEAD WITHOUT CONTRAST. HISTORY: persistent headache/ nausea after head injury COMPARISON: 01/31/2018 TECHNIQUE: Axial computed tomography images were obtained through the head/brain without intravenous contrast. Radiation dose: Total exam DLP = 811 mGy-cm. This CT exam was performed using one or more of the following dose reduction techniques: Automated exposure control, adjustment of the mA and/or kV according to patient size, and/or use of iterative reconstruction technique. FINDINGS: HEMORRHAGE: No intracranial hemorrhage. BRAIN: No mass effect or edema. No atrophy or chronic microvascular ischemic changes. VENTRICLES: Unremarkable. No hydrocephalus. CALVARIUM: There is swelling of the scalp over the right frontal region. There is no associated fracture PARANASAL SINUSES: Unremarkable as visualized. No significant inflammatory changes. MASTOID AIR CELLS: Unremarkable as visualized. No inflammatory changes. OTHER FINDINGS: None. IMPRESSION: No acute intracranial findings
[2018-02-02 10:00] VITALS: BP 128/69; PULSE 92; O2SAT 98
--- NOTE | 2018-02-02 10:27 | CARD ---
APPROVED REPORT EKG Measurement Heart [id number] <Conclusion> Normal sinus rhythm Normal ECG
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
== END 2018-02-02 10:15 | disposition left against medical advice (07) ==
LOC: ED 05:08 → ERH 07:01 → UNDOADMIN 07:01 → ED 10:15
DX: L03.211 Cellulitis of face (principal); I10 Essential (primary) hypertension; F10.10 Alcohol abuse, uncomplicated; F17.210 Nicotine dependence, cigarettes, uncomplicated
CPT/HCPCS: 70450; 71045; 80053; 80320; 81003; 82803; 83735; 84100; 85027; 85610; 85730; 87040; 87086; 93005; 96365; 96366; 96375; 99284; J1200; J2270; J2405

== ENCOUNTER 2018-02-02 19:12 | Inpatient (IN) | payer MEDICAID ==
[2018-02-02 19:12] VITALS: BMI 19.2
[2018-02-02] MEDS ORDERED: Multivitamin (MVI) 10 ML, Thiamine 100 MG, Folic Acid 1 MG in Sodium Chloride 0.9% 1,00... IV ONE (20:09)
[2018-02-02] MEDS ORDERED: Vancomycin 1gm in NS 250ml 1 GM/250 ML BAG IVPB STA (20:09)
[2018-02-02] MEDS ORDERED: Sodium Chloride 0.9% 1,000 ML IV STA (20:09)
[2018-02-02] MEDS ORDERED: Piperacillin/Tazobact 3.375 gm 100 ML IVPB STA (20:09)
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
[2018-02-02 20:57] LABS: BASO # 0.03 K/mm3 (0.0-2.0); BASO % 0.7 % (0.0-3.0); EOS # 0.2 (0.0-0.7); EOS % 3.4 % (1.5-5.0); GRAN # 1.85 (1.4-6.5); GRAN % 42.4 % (50.0-68.0); HEMOGLOBIN 16.3 g/dL (14.0-18.0); LYMPH # 1.6 (1.2-3.4); LYMPH % 37.4 % (22.0-35.0); MEAN CELL VOLUME 91.8 fl (80.0-105.0); MEAN CORPUSCULAR HEMOGLOBIN 33.4 pg (25.0-35.0); MEAN CORPUSCULAR HGB CONC 36.4 g/dl (31.0-37.0); MEAN PLATELET VOLUME 9.2 fl (7.0-11.0); MONO # 0.7 (0.1-0.6); MONO % 16.1 % (1.0-6.0); RBC 4.88 10^6/uL (3.5-6.1); RED CELL DISTRIBUTION WIDTH 16.2 % (11.5-14.5); WHITE BLOOD COUNT 4.4 10^3/ul (4.5-11.0)
[2018-02-02 21:14] LABS: ALB/GLOB RATIO 1.1 (1.1-1.8); ALBUMIN 4.3 g/dL (3.0-4.8); ALT/SGPT 46 U/L (7-56); AST/SGOT 54 U/L (17-59); BLOOD UREA NITROGEN 5 mg/dL (7-21); CALCIUM 9.7 mg/dL (8.4-10.5); GFR AFRICAN-AMERICAN > 60; GFR NON-AFRICAN AMERICAN > 60
[2018-02-02] MEDS ORDERED: Clindamycin 300 MG in Sodium Chloride 0.9% 50 ML IVPB SCH (21:30)
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
[2018-02-03] MEDS ORDERED: Clindamycin 300 MG in Sodium Chloride 0.9% 50 ML IVPB SCH (01:28)
[2018-02-03] MEDS: Pantoprazole 40 mg EC Tab PO SCH (07:01)
[2018-02-03 07:45] LABS: MEAN CELL VOLUME 93.2 fl (80.0-105.0); MEAN CORPUSCULAR HEMOGLOBIN 32.7 pg (25.0-35.0); MEAN CORPUSCULAR HGB CONC 35.1 g/dl (31.0-37.0); MEAN PLATELET VOLUME 9.5 fl (7.0-11.0); RBC 4.25 10^6/uL (3.5-6.1); RED CELL DISTRIBUTION WIDTH 16.3 % (11.5-14.5); WHITE BLOOD COUNT 3.3 10^3/ul (4.5-11.0)
[2018-02-03 07:46] LABS: HEMOGLOBIN 13.9 g/dL (14.0-18.0)
[2018-02-03 08:07] LABS: ALBUMIN 3.2 g/dL (3.0-4.8); ALT/SGPT 40 U/L (7-56); AST/SGOT 47 U/L (17-59); BLOOD UREA NITROGEN 6 mg/dL (7-21); GFR AFRICAN-AMERICAN > 60; GFR NON-AFRICAN AMERICAN > 60
[2018-02-03] MEDS: Vancomycin 1gm in NS 250ml 1 GM/250 ML BAG IVPB SCH ×2 (09:42→21:07)
[2018-02-03] MEDS: Folic Acid 1 MG, Thiamine 100 MG, Multivitamin (MVI) 10 ML, Potassium Chloride 40 MEQ i... IV SCH ×2 (09:43→23:38)
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
[2018-02-03 15:29] VITALS: RESP 20
--- NOTE | 2018-02-03 16:00 | CARD ---
APPROVED REPORT EKG Measurement Heart [id number] <Conclusion> Normal sinus rhythm with sinus arrhythmia Normal ECG
[2018-02-04] MEDS: Folic Acid 1 MG, Thiamine 100 MG, Multivitamin (MVI) 10 ML, Potassium Chloride 40 MEQ i... IV SCH (07:04)
[2018-02-04 07:05] LABS: HEMOGLOBIN 15.4 g/dL (14.0-18.0); MEAN CELL VOLUME 92.1 fl (80.0-105.0); MEAN CORPUSCULAR HEMOGLOBIN 32.1 pg (25.0-35.0); MEAN CORPUSCULAR HGB CONC 34.8 g/dl (31.0-37.0); MEAN PLATELET VOLUME 10.1 fl (7.0-11.0); RBC 4.8 10^6/uL (3.5-6.1); RED CELL DISTRIBUTION WIDTH 15.6 % (11.5-14.5); WHITE BLOOD COUNT 4.3 10^3/ul (4.5-11.0)
[2018-02-04] MEDS: Pantoprazole 40 mg EC Tab PO SCH (07:05)
[2018-02-04 07:24] LABS: ALBUMIN 3.7 g/dL (3.0-4.8); ALT/SGPT 38 U/L (7-56); AST/SGOT 42 U/L (17-59); BLOOD UREA NITROGEN 9 mg/dL (7-21); GFR AFRICAN-AMERICAN > 60; GFR NON-AFRICAN AMERICAN > 60
[2018-02-04 08:57] VITALS: BP 148/90; PULSE 69; TEMP 97.8; O2SAT 97
[2018-02-04] MEDS: Vancomycin 1gm in NS 250ml 1 GM/250 ML BAG IVPB SCH (09:40)
[2018-02-04] MEDS ORDERED: Multivitamin Therapeutic Tab PO SCH (10:00)
--- NOTE | 2018-02-04 13:17 | CP.PCM.DIS ---
<Checo Childers - Last Filed: 02/04/18 13:08> Provider - Provider Date of Admission: 02/02/18 20:25 Attending physician: Ever Hagen MD Primary care physician: NO PRIMARY CARE PROVIDER Consults: ID: [id number] Time Spent in preparation of Discharge (in minutes): 46 Diagnosis - Discharge Diagnosis (1) Alcohol withdrawal Status: Acute (2) Cellulitis Status: Acute Hospital Course - Lab Results Lab Results: Most Recent Lab Values WBC 4.3 10^3/ul (4.5-11.0) L D 02/04/18 06:00 RBC 4.80 10^6/uL (3.5-6.1) 02/04/18 06:00 Hgb 15.4 g/dL (14.0-18.0) 02/04/18 06:00 Hct 44.2 % (42.0-52.0) 02/04/18 06:00 MCV 92.1 fl (80.0-105.0) 02/04/18 06:00 MCH 32.1 pg (25.0-35.0) 02/04/18 06:00 MCHC 34.8 g/dl (31.0-37.0) 02/04/18 06:00 RDW 15.6 % (11.5-14.5) H 02/04/18 06:00 Plt Count 200 10^3/uL (120.0-450.0) 02/04/18 06:00 MPV 10.1 fl (7.0-11.0) 02/04/18 06:00 Gran % 42.4 % (50.0-68.0) L 02/02/18 20:30 Lymph % (Auto) 37.4 % (22.0-35.0) H 02/02/18 20:30 Liberty % (Auto) 16.1 % (1.0-6.0) H 02/02/18 20:30 Eos % (Auto) 3.4 % (1.5-5.0) 02/02/18 20:30 Baso % (Auto) 0.7 % (0.0-3.0) 02/02/18 20:30 Gran # 1.85 (1.4-6.5) 02/02/18 20:30 Lymph # (Auto) 1.6 (1.2-3.4) 02/02/18 20:30 Liberty # (Auto) 0.7 (0.1-0.6) H 02/02/18 20:30 Eos # (Auto) 0.2 (0.0-0.7) 02/02/18 20:30 Baso # (Auto) 0.03 K/mm3 (0.0-2.0) 02/02/18 20:30 Sodium 138 mmol/L (132-148) 02/04/18 06:00 Potassium 4.4 mmol/L (3.6-5.0) 02/04/18 06:00 Chloride 104 mmol/L (98-107) 02/04/18 06:00 Carbon Dioxide 28 mmol/L (21-33) 02/04/18 06:00 Anion Gap 11 (10-20) 02/04/18 06:00 BUN 9 mg/dL (7-21) 02/04/18 06:00 Creatinine 0.7 mg/dl (0.8-1.5) L 02/04/18 06:00 Est GFR ( Amer) > 60 02/04/18 06:00 Est GFR (Non-Af Amer) > 60 02/04/18 06:00 Random Glucose 100 mg/dL (70-110) 02/04/18 06:00 Calcium 10.0 mg/dL (8.4-10.5) 02/04/18 06:00 Total Bilirubin 0.8 mg/dL (0.2-1.3) 02/04/18 06:00 AST 42 U/L (17-59) 02/04/18 06:00 ALT 38 U/L (7-56) 02/04/18 06:00 Alkaline Phosphatase 70 U/L (38-126) 02/04/18 06:00 Total Protein 7.3 g/dL (5.8-8.3) 02/04/18 06:00 Albumin 3.7 g/dL (3.0-4.8) 02/04/18 06:00 Globulin 3.7 gm/dL 02/04/18 06:00 Albumin/Globulin Ratio 1.0 (1.1-1.8) L 02/04/18 06:00 Alcohol, Quantitative 367 mg/dL (0-10) H* 02/02/18 20:30 - Hospital Course Hospital Course: 42yo male with a PMH of CAD, HTN, shingles, tobacco and ETOH abuse who presented to ED with a right supraorbital cellulitis concerning for mild preseptal cellulitis. CT maxillofacial ordered and showed no acute facial bone fracture, stable angulation of the left nasal bone suggestive of prior trauma, soft tissue swelling/hematoma of the right frontal scalp, right preseptal and periorbital region, soft tissue swelling/hematoma overlying the nasal bones, left facial soft tissue swelling and laceration of the right facial soft tissues. CT head was negative for any acute intracranial hemorrhage. ID was consulted. Vancomycin was started. Tylenol, Motrin and Zofran were started. Alcohol was elevated and patient was started on banana bag, PRN Ativan and CIWA assessments. A nicotine patch was ordered for tobacco abuse. He was started on GI and DVT prophylaxis. He was discharged on 02/04/18 with PO Keflex prescription and the following instructions: You are being discharged to home. Please cleanse your facial wound with soap and water. If it becomes hot, with a purulent discharge, you run a fever, or pain increases, please return to the Emergency Room. Please follow up with your primary care physician and make him/her aware of your hospitalization. - Date & Time of H&P Date of H&P: 02/02/18 Time of H&P: 22:31 Discharge Exam - Head Exam Head Exam: NORMAL INSPECTION, NORMOCEPHALIC. absent: ATRAUMATIC (R supra orbital laceration w/ no active bleeding, but clear swelling and erythema extending into R eye region) - Eye Exam Eye Exam: EOMI, Normal appearance, PERRL Pupil Exam: NORMAL ACCOMODATION, PERRL - ENT Exam ENT Exam: Mucous Membranes Moist - Neck Exam Neck exam: Full Rom, Normal Inspection - Respiratory Exam Respiratory Exam: Clear to PA & Lateral, NORMAL BREATHING PATTERN, UNREMARKABLE - Cardiovascular Exam Cardiovascular Exam: REGULAR RHYTHM - GI/Abdominal Exam GI & Abdominal Exam: Normal Bowel Sounds, Unremarkable - Extremities Exam Extremities exam: full ROM, normal capillary refill, normal inspection, pedal pulses present - Back Exam Back exam: NORMAL INSPECTION - Neurological Exam Neurological exam: Alert, CN II-XII Intact, Normal Gait, Oriented x3, Reflexes Normal - Psychiatric Exam Psychiatric exam: Normal Affect, Normal Mood - Skin Skin Exam: Dry, Warm Discharge Plan - Follow Up Plan Condition: GOOD Disposition: HOME/ ROUTINE Instructions: Smoking: Not Just Harmful to Your Lungs and Heart, Laceration Infection (DC), Chest Pain (DC), Cellulitis (DC) Additional Instructions: You are being discharged to home. Please cleanse your facial wound with soap and water. If it becomes hot, with a purulent discharge, you run a fever, or pain increases, please return to the Emergency Room. Please follow up with your primary care physician and make him/her aware of your hospitalization. Referrals: [facility] at [facility] [place]Outside] PCP,NO [Primary Care Provider] - <Ever Hagen - Last Filed: 02/04/18 16:26> Provider - Provider Date of Admission: 02/02/18 20:25 Attending physician: Ever Hagen MD Primary care physician: SCOT PRIMARY CARE PROVIDER Hospital Course - Lab Results Lab Results: Most Recent Lab Values WBC 4.3 10^3/ul (4.5-11.0) L D 02/04/18 06:00 RBC 4.80 10^6/uL (3.5-6.1) 02/04/18 06:00 Hgb 15.4 g/dL (14.0-18.0) 02/04/18 06:00 Hct 44.2 % (42.0-52.0) 02/04/18 06:00 MCV 92.1 fl (80.0-105.0) 02/04/18 06:00 MCH 32.1 pg (25.0-35.0) 02/04/18 06:00 MCHC 34.8 g/dl (31.0-37.0) 02/04/18 06:00 RDW 15.6 % (11.5-14.5) H 02/04/18 06:00 Plt Count 200 10^3/uL (120.0-450.0) 02/04/18 06:00 MPV 10.1 fl (7.0-11.0) 02/04/18 06:00 Gran % 42.4 % (50.0-68.0) L 02/02/18 20:30 Lymph % (Auto) 37.4 % (22.0-35.0) H 02/02/18 20:30 Liberty % (Auto) 16.1 % (1.0-6.0) H 02/02/18 20:30 Eos % (Auto) 3.4 % (1.5-5.0) 02/02/18 20:30 Baso % (Auto) 0.7 % (0.0-3.0) 02/02/18 20:30 Gran # 1.85 (1.4-6.5) 02/02/18 20:30 Lymph # (Auto) 1.6 (1.2-3.4) 02/02/18 20:30 Liberty # (Auto) 0.7 (0.1-0.6) H 02/02/18 20:30 Eos # (Auto) 0.2 (0.0-0.7) 02/02/18 20:30 Baso # (Auto) 0.03 K/mm3 (0.0-2.0) 02/02/18 20:30 Sodium 138 mmol/L (132-148) 02/04/18 06:00 Potassium 4.4 mmol/L (3.6-5.0) 02/04/18 06:00 Chloride 104 mmol/L (98-107) 02/04/18 06:00 Carbon Dioxide 28 mmol/L (21-33) 02/04/18 06:00 Anion Gap 11 (10-20) 02/04/18 06:00 BUN 9 mg/dL (7-21) 02/04/18 06:00 Creatinine 0.7 mg/dl (0.8-1.5) L 02/04/18 06:00 Est GFR ( Amer) > 60 02/04/18 06:00 Est GFR (Non-Af Amer) > 60 02/04/18 06:00 Random Glucose 100 mg/dL (70-110) 02/04/18 06:00 Calcium 10.0 mg/dL (8.4-10.5) 02/04/18 06:00 Total Bilirubin 0.8 mg/dL (0.2-1.3) 02/04/18 06:00 AST 42 U/L (17-59) 02/04/18 06:00 ALT 38 U/L (7-56) 02/04/18 06:00 Alkaline Phosphatase 70 U/L (38-126) 02/04/18 06:00 Total Protein 7.3 g/dL (5.8-8.3) 02/04/18 06:00 Albumin 3.7 g/dL (3.0-4.8) 02/04/18 06:00 Globulin 3.7 gm/dL 02/04/18 06:00 Albumin/Globulin Ratio 1.0 (1.1-1.8) L 02/04/18 06:00 Alcohol, Quantitative 367 mg/dL (0-10) H* 02/02/18 20:30 Attending/Attestation - Attestation I have personally seen and examined this patient.: Yes I have fully participated in the care of the patient.: Yes I have reviewed all pertinent clinical information, including history, physical exam and plan: Yes Notes (Text): 02/04/18 16:21 attending note; Patient seen and examined with resident. patient is a 42-year-old male with a history of hypertension, shingles, tobacco and ETOH abuse is admitted for right supraorbital cellulitis concerning for mild preseptal cellulitis. No visual acuity changes noted, and CT Head was negative for intracranial changes. CT maxillofacial is negative for fracture. started on IV vancomycin.ID evaluation appreciated. swelling improved. Patient also had significant alcohol ingestion. Alcohol level is 367. not in withdrawal. Patient is ambulating in the hallway without tremors. Tolerating diet well. No nausea, vomiting noted. active smoking; smoking cessation is strongly advised. Started on NicoDerm patch. Upon discharge the patient will follow up with PMD of choice or [facility] [place] clinic. 02/04/18 16:25
--- NOTE | 2018-02-04 14:36 | PN ---
DATE: 02/04/2018 SUBJECTIVE: The patient is in bed in no acute distress, nontoxic. PHYSICAL EXAMINATION: VITAL SIGNS: Temperature is 97, blood pressure is 140/80, respiratory rate of 16. HEENT: Unremarkable. NECK: Supple. LUNGS: Have decreased breath sounds. HEART: Normal S1, S2. ABDOMEN: Soft, nontender. LABORATORY DATA: Reveals the patient's white count of 4.3, hemoglobin of 15. Chemistries are noted. Alcohol level is noted. Microbiology is reviewed. ASSESSMENT AND PLAN: A 42-year-old male who was seen early this morning in [facility], bed 1 with history of coronary artery disease, hypertension, history of herpes zoster, smoking history, alcohol history. He is admitted now with alcoholic intoxication, right preseptal facial cellulitis associated with a laceration and trauma and on vancomycin and Zosyn. The patient was seen early this morning with culture results still pending. Felipe Mcclain MD
[2018-02-05] MEDS ORDERED: Multivitamin With Minerals Tab PO SCH (08:00)
== END 2018-02-04 10:11 | disposition home or self-care (01) | DRG 277 ==
LOC: ED 19:12 → ERH 20:25 → 5RSO 22:25
PROVIDERS: ADMIT Internal Medicine; ATTEND Internal Medicine
DX: L03.211 Cellulitis of face (principal); F10.239 Alcohol dependence with withdrawal, unspecified; S01.81XA Laceration without foreign body of other part of head, initial encounter; L03.213 Periorbital cellulitis; W22.8XXA Striking against or struck by other objects, initial encounter; Y90.8 Blood alcohol level of 240 mg/100 ml or more; I25.10 Atherosclerotic heart disease of native coronary artery without angina pectoris; I10 Essential (primary) hypertension; F17.210 Nicotine dependence, cigarettes, uncomplicated; Z88.1 Allergy status to other antibiotic agents; Z88.0 Allergy status to penicillin

== ENCOUNTER 2018-02-04 15:11 | Emergency (ER) | payer MEDICAID ==
[2018-02-04 15:12] VITALS: BMI 19.2
[2018-02-04 15:40] VITALS: BP 125/76; PULSE 100; RESP 18; TEMP 98.5; O2SAT 97
[2018-02-04] MEDS ORDERED: Clindamycin 150 mg/mL Inj IM STA (15:45)
--- NOTE | 2018-02-04 15:50 | ED PDOC ---
Arrival/HPI - General Chief Complaint: Headache Time Seen by Provider: 02/04/18 15:36 Historian: Patient - History of Present Illness Narrative History of Present Illness (Text): 02/04/18 15:46 42yo male with history of alcohol abuse who present with complaint of headache and right sided cheek throbbing pain. Patient states he fell few days ago and was admitted here 2days ago for cellulitis. He was discharged this morning. He states he was discharged with Keflex and he started vomiting after taking it and skin became itchy. He is allergic to penicillin. He also states that he is taking Tylenol for his headache and facial pain without relieve. He denies focal weakness, visual changes, dizziness, tongue swelling, any other complaint. Past Medical History - Provider Review Nursing Documentation Reviewed: Yes - Infectious Disease Hx of Infectious Diseases: None - Tetanus Immunization Tetanus Immunization: Unknown - Past Medical History Past Medical History: No Previous - Cardiac Hx Cardiac Disorders: Yes Hx Hypertension: Yes - Pulmonary Hx Respiratory Disorders: No Hx Tuberculosis: No - Neurological Hx Neurological Disorder: No HX Cerebrovascular Accident: No Hx Seizures: No - HEENT Hx HEENT Disorder: No - Renal Hx Renal Disorder: No - Endocrine/Metabolic Hx Endocrine Disorders: No - Hematological/Oncological Hx Blood Disorders: Yes Hx Cancer: No Hx Hepatitis B: Yes Hx Hepatitis C: Yes - Integumentary Hx Dermatological Disorder: No - Musculoskeletal/Rheumatological Hx Musculoskeletal Disorders: No Hx Falls: No - Gastrointestinal Hx Gastrointestinal Disorders: No - Genitourinary/Gynecological Hx Genitourinary Disorders: No Hx Sexually Transmitted Diseases: No - Psychiatric Hx Psychophysiologic Disorder: Yes Hx Depression: Yes Hx Emotional Abuse: No Hx Physical Abuse: No Hx Substance Use: No Other/Comment: SUBSTANCE ABUSE PROBLEM ALCOHOL - Past Surgical History Past Surgical History: No Previous - Anesthesia Hx Anesthesia: Yes - Suicidal Assessment Feels Threatened In Home Enviroment: No Family/Social History - Physician Review Nursing Documentation Reviewed: Yes Family/Social History: Unknown Family HX Smoking Status: Heavy Smoker > 10 Cigarettes Daily Hx Alcohol Use: Yes Amount per day: 3 Hx Substance Use: No Hx Substance Use Treatment: No Allergies/Home Meds Allergies/Adverse Reactions: Allergies cephalexin [From Keflex] Allergy (Verified 02/04/18 15:44) NAUSEA Penicillins Allergy (Verified 02/04/18 15:40) RASH Review of Systems - Physician Review All systems were reviewed & negative as marked: Yes - Review of Systems Constitutional: Normal Eyes: Normal ENT: Normal Respiratory: Normal Cardiovascular: Normal Gastrointestinal: Normal Genitourinary Male: Normal Musculoskeletal: Normal Skin: Cellulitis Neurological: Headache. absent: Dizziness, Focal Weakness, Gait Changes, Speech Changes Endocrine: Normal Hemo/Lymphatic: Normal Psychiatric: Normal Physical Exam Vital Signs Reviewed: Yes Vital Signs Temp Pulse Resp BP Pulse Ox 02/04/18 15:34 98.5 F 100 H 18 125/76 97 Temperature: Afebrile Blood Pressure: Normal Pulse: Regular Respiratory Rate: Normal Appearance: Positive for: Well-Appearing, Non-Toxic, Comfortable Pain Distress: None Mental Status: Positive for: Alert and Oriented X 3 - Systems Exam Head: Present: Atraumatic, Normocephalic Pupils: Present: PERRL Extroacular Muscles: Present: EOMI, Other (Right periorbital and cheek swelling. No overlaying erythema.) Conjunctiva: Present: Normal Mouth: Present: Moist Mucous Membranes Neck: Present: Normal Range of Motion Respiratory/Chest: Present: Clear to Auscultation, Good Air Exchange. No: Respiratory Distress, Accessory Muscle Use Cardiovascular: Present: Regular Rate and Rhythm, Normal S1, S2. No: Murmurs Abdomen: Present: Normal Bowel Sounds. No: Tenderness, Distention, Peritoneal Signs Back: Present: Normal Inspection Upper Extremity: Present: Normal Inspection. No: Cyanosis, Edema Lower Extremity: Present: Normal Inspection. No: Edema Neurological: Present: GCS=15, CN II-XII Intact, Speech Normal, Motor Func Grossly Intact, Normal Sensory Function, Normal Cerebellar Funct, Norm Deep Tendon Reflexes, Gait Normal, Memory Normal, Normal 2Pt Descrimination, Other ( No focal neurological deficit) Skin: Present: Warm, Dry, Normal Color. No: Rashes Psychiatric: Present: Alert, Oriented x 3, Normal Insight, Normal Concentration Medical Decision Making ED Course and Treatment: 02/04/18 20:07 PT in ED for stated history. He was afebrile and hemodynamically stable in ED. Pt was treated with IV abx for 2days and DC this morning with Keflex. Pt came to ED because he developed reaction to the Keflex. He was not in any distress. He was treated with IM Clindamycin 600mg and was DC home with clindamycin 300mg TID. Advised to stop taking Keflex. He denies any visual changes in ED. Snellen test Left 20/20 Right 20/20 Both 20/20 Pt was referred to the clinic/PMD. TRT ED for any new or worsening symptoms. - Medication Orders Current Medication Orders: Discontinued Medications Clindamycin Phosphate (Cleocin) 600 mg IM STAT STA PRN Reason: Protocol Stop: 02/04/18 15:46 Last Admin: 02/04/18 15:55 Dose: 600 mg IM Administration Charges Document 02/04/18 15:55 EWO (Rec: 02/04/18 15:55 [facility] [id number]) Injection Site MAR Injection Site Left Deltoid Charges for Administration # of IM Administrations 1 Tramadol HCl (Ultram) 50 mg PO STAT STA Stop: 02/04/18 15:45 Last Admin: 02/04/18 15:54 Dose: 50 mg MAR Pain Assessment Document 02/04/18 15:54 EWO (Rec: 02/04/18 15:55 [facility] [id number]) Pain Reassessment Is this a pain reassessment? No Sleep Is patient sleeping during reassessment? No Presence of Pain Presence of Pain Yes Pain Scale Used Pain Scale Used Numeric Location Pain Location Body Community Marketing Coordinator Description Description Intermittent Intensity of Pain at present 5 Disposition/Present on Arrival - Present on Arrival Any Indicators Present on Arrival: No History of DVT/PE: No History of Uncontrolled Diabetes: No Urinary Catheter: No History of Decub. Ulcer: No History Surgical Site Infection Following: None - Disposition Have Diagnosis and Disposition been Completed?: Yes Diagnosis: Cellulitis, Headache Disposition: HOME/ ROUTINE Disposition Time: 16:00 Patient Plan: Discharge Condition: STABLE Discharge Instructions (ExitCare): Cellulitis and Erysipelas (Skin Infections) , Headache, Adult (DC), Cellulitis (ED) Additional Instructions: Follow up with your doctor/clinic Return to ED for any new or worsening symptoms Prescriptions: Clindamycin [Cleocin] 300 mg PO TID #21 cap traMADol [Ultram] 50 mg PO TID #9 tab Referrals: [facility] at [facility] [place]Outside] - Follow up with primary Forms: [employer] (Finnish)
== END 2018-02-04 16:10 | disposition home or self-care (01) ==
LOC: ED 15:11
DX: R51 Headache (principal); L03.211 Cellulitis of face

== ENCOUNTER 2018-03-08 15:39 | Emergency (ER) | payer MEDICAID ==
[2018-03-08 15:40] VITALS: BMI 19.2
[2018-03-08 15:57] VITALS: PULSE 108
[2018-03-08 16:19] LABS: BASO # 0.02 K/mm3 (0.0-2.0); BASO % 0.4 % (0.0-3.0); EOS % 0.6 % (1.5-5.0); GRAN # 1.94 (1.4-6.5); GRAN % 35.9 % (50.0-68.0); HEMOGLOBIN 16.8 g/dL (14.0-18.0); LYMPH % 55.7 % (22.0-35.0); MEAN CELL VOLUME 92.1 fl (80.0-105.0); MEAN CORPUSCULAR HEMOGLOBIN 33.9 pg (25.0-35.0); MEAN CORPUSCULAR HGB CONC 36.8 g/dl (31.0-37.0); MONO # 0.4 (0.1-0.6); MONO % 7.4 % (1.0-6.0); RBC 4.95 10^6/uL (3.5-6.1); RED CELL DISTRIBUTION WIDTH 16.3 % (11.5-14.5); WHITE BLOOD COUNT 5.4 10^3/ul (4.5-11.0)
--- NOTE | 2018-03-08 16:19 | ED PDOC ---
Arrival/HPI - General Chief Complaint: Chest Pain Time Seen by Provider: 03/08/18 15:44 Historian: Patient - History of Present Illness Narrative History of Present Illness (Text): you were treated in the ED today for hx HTN, heart disease, smoker, with left sided chest pain which has resolved and otherwise without any nausea/vomiting/ headache/dizziness/difficulty breathing/abdomen pain/numbness/tingling/loss of limb function/pain with urination/no recent travel/prior blood clots/prior cancer. 03/08/18 16:15 03/08/18 16:16 Time/Duration: 1-3 hours Symptom Onset: Gradual Symptom Course: Resolved Quality: Other (no pain) Activities at Onset: Rest Context: Sitting Past Medical History - Provider Review Nursing Documentation Reviewed: Yes - Travel History Have you recently traveled outside [place] w/in the past 3 mons?: No - Infectious Disease Hx of Infectious Diseases: None - Tetanus Immunization Tetanus Immunization: Unknown - Past Medical History Past Medical History: No Previous - Cardiac Hx Cardiac Disorders: Yes Hx Hypertension: Yes - Pulmonary Hx Respiratory Disorders: No Hx Tuberculosis: No - Neurological Hx Neurological Disorder: No HX Cerebrovascular Accident: No Hx Seizures: No - HEENT Hx HEENT Disorder: No - Renal Hx Renal Disorder: No - Endocrine/Metabolic Hx Endocrine Disorders: No - Hematological/Oncological Hx Blood Disorders: Yes Hx Cancer: No Hx Hepatitis B: Yes Hx Hepatitis C: Yes - Integumentary Hx Dermatological Disorder: No - Musculoskeletal/Rheumatological Hx Musculoskeletal Disorders: No Hx Falls: No - Gastrointestinal Hx Gastrointestinal Disorders: No - Genitourinary/Gynecological Hx Genitourinary Disorders: No Hx Sexually Transmitted Diseases: No - Psychiatric Hx Psychophysiologic Disorder: Yes Hx Depression: Yes Hx Emotional Abuse: No Hx Physical Abuse: No Hx Substance Use: No Other/Comment: SUBSTANCE ABUSE PROBLEM ALCOHOL - Past Surgical History Past Surgical History: No Previous - Anesthesia Hx Anesthesia: Yes - Suicidal Assessment Feels Threatened In Home Enviroment: No Family/Social History - Physician Review Nursing Documentation Reviewed: Yes Family/Social History: No Known Family HX Smoking Status: Heavy Smoker > 10 Cigarettes Daily Hx Alcohol Use: Yes Amount per day: 3 Hx Substance Use: No Hx Substance Use Treatment: No Allergies/Home Meds Allergies/Adverse Reactions: Allergies cephalexin [From Keflex] Allergy (Verified 02/04/18 15:44) NAUSEA Penicillins Allergy (Verified 02/04/18 15:40) RASH Review of Systems - Review of Systems Constitutional: Normal Eyes: Normal ENT: Normal Respiratory: Normal Cardiovascular: Chest Pain Gastrointestinal: Normal Genitourinary Male: Normal Musculoskeletal: Normal Skin: Normal Neurological: Normal Endocrine: Normal Hemo/Lymphatic: Normal Psychiatric: Normal Physical Exam Vital Signs Reviewed: Yes Vital Signs Temp Pulse Resp BP Pulse Ox 03/08/18 15:53 98.4 F 108 H 18 153/84 H 95 Temperature: Afebrile Blood Pressure: Hypertensive Pulse: Regular Respiratory Rate: Normal Appearance: Positive for: Well-Appearing, Non-Toxic, Comfortable Pain Distress: None Mental Status: Positive for: Alert and Oriented X 3 - Systems Exam Head: Present: Atraumatic, Normocephalic Pupils: Present: PERRL Extroacular Muscles: Present: EOMI Conjunctiva: Present: Normal Ears: Present: Normal Mouth: Present: Moist Mucous Membranes Pharnyx: Present: Normal Nose (External): Present: Atraumatic, Abrasion Nose (Internal): Present: Normal Inspection Neck: Present: Normal Range of Motion Respiratory/Chest: Present: Clear to Auscultation, Good Air Exchange Cardiovascular: Present: Regular Rate and Rhythm Abdomen: No: Tenderness, Distention, Normal Bowel Sounds, Peritoneal Signs, Rebound, Guarding, McBurney's Point Tender, Rovsing's Sign Present, Hernias, Feeding Tubes, Ostomy Tubes, Mass/Organomegaly, Scars, Other Back: Present: Normal Inspection Upper Extremity: Present: Normal Inspection Lower Extremity: Present: Normal Inspection Neurological: Present: GCS=15, CN II-XII Intact, Speech Normal, Motor Func Grossly Intact Skin: Present: Warm, Normal Color Psychiatric: Present: Alert, Oriented x 3, Normal Insight, Normal Concentration Medical Decision Making ED Course and Treatment: you were treated in the ED today for hx HTN, heart disease, smoker, with left sided chest pain which has resolved and otherwise without any nausea/vomiting/ headache/dizziness/difficulty breathing/abdomen pain/numbness/tingling/loss of limb function/pain with urination/no recent travel/prior blood clots/prior cancer. You were otherwise breathing easily, smiling and laughin, good strength/ sensation, walking easily, clear lungs, no abdomen tenderness, no fever temp 98.4, fast heart rate 108, stable breathing rate 18, excellent oxygen level 95% room air, elevated blood pressure 153/84 which we recommend repeat in 2-3 days primary care office to determine further treatment, you have blood tests no infection count 5, stable blood level hemoglobin 16/platelets 191, stable chemistry, heart blood test 0.03, ECG normal sinus, aspirin, observation done in the ED with improvement, counselled to stop smoking and you didn't want to stay for further observation/care and cautioned for complications/ and you wanted to go home. 1. Recommend follow-up primary care 1 day to review symptoms , referral to cardiology to review your symptoms, referral to gastroenterology clinic for mildly elevated AST 61. 4. If any worsening pain, fever, chills, nausea, vomiting, difficulty breathing, numbness, loss of limb function, pain with urination or any medical condition then return to the ED. 03/08/18 16:56 Reassessment Condition: Re-examined, Improved - Lab Interpretations Lab Results: 03/08/18 16:05 03/08/18 16:05 Lab Results 03/08/18 16:05: PT 10.4, INR 0.91 L, APTT 34.5 03/08/18 16:05: Sodium 147, Potassium 4.1, Chloride 106, Carbon Dioxide 24, Anion Gap 21 H, BUN 5 L, Creatinine 0.6 L, Est GFR ( Amer) > 60, Est GFR (Non-Af Amer) > 60, Random Glucose 100, Calcium 9.2, Magnesium 1.9, Total Bilirubin 0.4, AST 61 H D, ALT 24, Alkaline Phosphatase 82, Lactate Dehydrogenase 649, Total Creatine Kinase 256 H, CK-MB (CK-2) Pending, CK-MB (CK- 2) % Pending, Troponin I 0.03 D, Total Protein 8.4 H, Albumin 4.7, Globulin 3.7 , Albumin/Globulin Ratio 1.3 03/08/18 16:05: WBC 5.4 D, RBC 4.95, Hgb 16.8, Hct 45.6, MCV 92.1, MCH 33.9, MCHC 36.8, RDW 16.3 H, Plt Count 191, MPV 9.0, Gran % 35.9 L, Lymph % (Auto) 55.7 H, [place] % (Auto) 7.4 H, Eos % (Auto) 0.6 L, Baso % (Auto) 0.4, Gran # 1.94 , Lymph # (Auto) 3.0, [place] # (Auto) 0.4, Eos # (Auto) 0.0, Baso # (Auto) 0.02 I have reviewed the lab results: Yes - RAD Interpretation Radiology Orders: 03/08/18 16:03 CHEST PORTABLE [RAD] Stat - EKG Interpretation Interpreted by ED Physician: Yes (NSR, flipped t waves avr, v1) Type: 12 lead EKG - Medication Orders Current Medication Orders: Discontinued Medications Aspirin (Aspirin) 325 mg PO STAT STA Stop: 03/08/18 16:03 Last Admin: 03/08/18 16:15 Dose: 325 mg Disposition/Present on Arrival - Present on Arrival Any Indicators Present on Arrival: No History of DVT/PE: No History of Uncontrolled Diabetes: No Urinary Catheter: No History of Decub. Ulcer: No History Surgical Site Infection Following: None - Disposition Have Diagnosis and Disposition been Completed?: Yes Diagnosis: Chest pain Disposition: AGAINST MEDICAL ADVICE Disposition Time: 16:57 Condition: IMPROVED Additional Instructions: you were treated in the ED today for hx HTN, heart disease, smoker, with left sided chest pain which has resolved and otherwise without any nausea/vomiting/ headache/dizziness/difficulty breathing/abdomen pain/numbness/tingling/loss of limb function/pain with urination/no recent travel/prior blood clots/prior cancer. You were otherwise breathing easily, smiling and laughin, good strength/ sensation, walking easily, clear lungs, no abdomen tenderness, no fever temp 98.4, fast heart rate 108, stable breathing rate 18, excellent oxygen level 95% room air, elevated blood pressure 153/84 which we recommend repeat in 2-3 days primary care office to determine further treatment, you have blood tests no infection count 5, stable blood level hemoglobin 16/platelets 191, stable chemistry, heart blood test 0.03, ECG normal sinus, aspirin, observation done in the ED with improvement, counselled to stop smoking and you didn't want to stay for further observation/care and cautioned for complications/ and you wanted to go home. 1. Recommend follow-up primary care 1 day to review symptoms , referral to cardiology to review your symptoms, referral to gastroenterology clinic for mildly elevated AST 61. 4. If any worsening pain, fever, chills, nausea, vomiting, difficulty breathing, numbness, loss of limb function, pain with urination or any medical condition then return to the ED. Referrals: Joel Seymour, [Primary Care Provider] - Follow up with primary Forms: [employer] (Romansh)
[2018-03-08 16:27] LABS: INR 0.91 (0.93-1.08); PROTHROMBIN TIME 10.4 SECONDS (9.4-12.5)
[2018-03-08 16:28] LABS: PARTIAL THROMBOPLASTIN TIME 34.5 Seconds (25.1-36.5)
[2018-03-08 16:41] LABS: ALB/GLOB RATIO 1.3 (1.1-1.8); ALBUMIN 4.7 g/dL (3.0-4.8); ALT/SGPT 24 U/L (7-56); AST/SGOT 61 U/L (17-59); BLOOD UREA NITROGEN 5 mg/dL (7-21); CALCIUM 9.2 mg/dL (8.4-10.5); GFR AFRICAN-AMERICAN > 60; GFR NON-AFRICAN AMERICAN > 60
[2018-03-08 16:52] LABS: TROPONIN I 0.03 ng/mL
[2018-03-08 16:57] LABS: CK-MB 1.2 ng/mL (0.0-3.6)
--- NOTE | 2018-03-08 17:04 | RAD ---
HISTORY: Chest pain. COMPARISON: Comparison made with prior study 02/02/2018 FINDINGS: LUNGS: No active pulmonary disease. PLEURA: No significant pleural effusion identified, no pneumothorax apparent. CARDIOVASCULAR: Normal. OSSEOUS STRUCTURES: No significant abnormalities. VISUALIZED UPPER ABDOMEN: Normal. OTHER FINDINGS: None. IMPRESSION: No acute cardiopulmonary disease.
[2018-03-08 18:07] VITALS: BP 150/83; RESP 16; TEMP 98; O2SAT 99
--- NOTE | 2018-03-08 18:22 | CARD ---
APPROVED REPORT EKG Measurement Heart [id number] <Conclusion> Sinus tachycardia Otherwise normal ECG
== END 2018-03-08 16:25 | disposition left against medical advice (07) ==
LOC: ED 15:39
DX: R07.9 Chest pain, unspecified (principal); I10 Essential (primary) hypertension; F17.210 Nicotine dependence, cigarettes, uncomplicated

== ENCOUNTER 2018-03-18 17:47 | Emergency (ER) | payer MEDICAID ==
[2018-03-18 17:47] VITALS: BMI 19.2
[2018-03-18] MEDS ORDERED: Aspirin 325 mg EC Tablets PO STA (18:34)
--- NOTE | 2018-03-18 18:43 | ED PDOC ---
Arrival/HPI - General Chief Complaint: Chest Pain Time Seen by Provider: 03/18/18 17:55 Historian: Patient - History of Present Illness Narrative History of Present Illness (Text): 42 y/o male w/ alcoholism?, cigareete smoking , hepatitis b? recent 03/08/18 visit for similar complaint w/ ama present c/o occasional left armpit noris associated with sob and dizziness. Uusally precipitated by arguments with his . Denies any hematemesis/ fevers/chills. pain is not exertionally exacerbated. 03/18/18 18:43 03/18/18 20:28 Past Medical History - Provider Review Nursing Documentation Reviewed: Yes - Travel History Have you recently traveled outside [place] w/in the past 3 mons?: No - Infectious Disease Hx of Infectious Diseases: None - Tetanus Immunization Tetanus Immunization: Unknown - Past Medical History Past Medical History: No Previous - Cardiac Hx Cardiac Disorders: Yes Hx Hypertension: Yes - Pulmonary Hx Respiratory Disorders: No Hx Tuberculosis: No - Neurological Hx Neurological Disorder: No HX Cerebrovascular Accident: No Hx Seizures: No - HEENT Hx HEENT Disorder: No - Renal Hx Renal Disorder: No - Endocrine/Metabolic Hx Endocrine Disorders: No - Hematological/Oncological Hx Blood Disorders: Yes Hx Cancer: No Hx Hepatitis B: Yes Hx Hepatitis C: Yes - Integumentary Hx Dermatological Disorder: No - Musculoskeletal/Rheumatological Hx Musculoskeletal Disorders: No Hx Falls: No - Gastrointestinal Hx Gastrointestinal Disorders: No - Genitourinary/Gynecological Hx Genitourinary Disorders: No Hx Sexually Transmitted Diseases: No - Psychiatric Hx Psychophysiologic Disorder: Yes Hx Depression: Yes Hx Emotional Abuse: No Hx Physical Abuse: No Hx Substance Use: No Other/Comment: SUBSTANCE ABUSE PROBLEM ALCOHOL - Past Surgical History Past Surgical History: No Previous - Anesthesia Hx Anesthesia: Yes Hx Anesthesia Reactions: No Hx Malignant Hyperthermia: No - Suicidal Assessment Feels Threatened In Home Enviroment: No Family/Social History - Physician Review Nursing Documentation Reviewed: Yes Family/Social History: No Known Family HX Smoking Status: Heavy Smoker > 10 Cigarettes Daily Hx Alcohol Use: Yes Amount per day: 3 Hx Substance Use: No Hx Substance Use Treatment: No Allergies/Home Meds Allergies/Adverse Reactions: Allergies cephalexin [From Keflex] Allergy (Verified 02/04/18 15:44) NAUSEA Penicillins Allergy (Verified 02/04/18 15:40) RASH Review of Systems - Physician Review All systems were reviewed & negative as marked: Yes - Review of Systems Constitutional: Normal Eyes: Normal ENT: Normal Respiratory: Normal Cardiovascular: Chest Pain Gastrointestinal: Normal Genitourinary Male: Normal Musculoskeletal: Normal Skin: Normal Neurological: Normal Endocrine: Normal Hemo/Lymphatic: Normal Psychiatric: Normal Physical Exam Vital Signs Reviewed: Yes Vital Signs Temp Pulse Pulse Resp BP Pulse Ox 03/18/18 18:14 76 03/18/18 17:47 98.2 F 90 18 150/95 H 97 Temperature: Afebrile Blood Pressure: Normal Pulse: Regular Respiratory Rate: Normal Appearance: Positive for: Well-Appearing, Non-Toxic, Comfortable Mental Status: Positive for: Alert and Oriented X 3 Finger Stick Blood Glucose: 107 - Systems Exam Head: Present: Atraumatic, Normocephalic Pupils: Present: PERRL Extroacular Muscles: Present: EOMI Conjunctiva: Present: Normal Mouth: Present: Moist Mucous Membranes Neck: Present: Normal Range of Motion Respiratory/Chest: Present: Clear to Auscultation, Good Air Exchange. No: Respiratory Distress, Accessory Muscle Use Cardiovascular: Present: Regular Rate and Rhythm, Normal S1, S2, Other (cp nonprroducible ). No: Murmurs Abdomen: No: Tenderness, Distention, Peritoneal Signs Back: Present: Normal Inspection Upper Extremity: Present: Normal Inspection. No: Cyanosis, Edema Lower Extremity: Present: Normal Inspection. No: Edema Neurological: Present: GCS=15, CN II-XII Intact, Speech Normal, Motor Func Grossly Intact, Normal Sensory Function, Normal Cerebellar Funct, Norm Deep Tendon Reflexes, Gait Normal, Memory Normal Skin: Present: Warm, Dry, Normal Color. No: Rashes Psychiatric: Present: Alert, Oriented x 3, Normal Insight, Normal Concentration Medical Decision Making ED Course and Treatment: 03/18/18 20:33 42 y/o male p/w cp . ekg : nsr w/ no ischemic st-t segments/nor arrythmogenic intervals. ro alcoholic gastritis vs pancreatitis vs acs (low suspicion) .riak stratify w/ labs serial ce's /ekgs/cxr - Medication Orders Current Medication Orders: Discontinued Medications Aspirin (Ecotrin) 325 mg PO STAT STA Stop: 03/18/18 18:35 Lactated Ringer's (Lactated Ringer's) 1,000 mls @ 500 mls/hr IV .Q2H THOMAS Disposition/Present on Arrival - Present on Arrival Any Indicators Present on Arrival: No History of DVT/PE: No History of Uncontrolled Diabetes: No Urinary Catheter: No History of Decub. Ulcer: No History Surgical Site Infection Following: None - Disposition Have Diagnosis and Disposition been Completed?: Yes Diagnosis: Chest pain Disposition: LEFT W/O TREATMENT - ER ONLY Disposition Time: 18:10 Patient Plan: Other Condition: GOOD Discharge Instructions (ExitCare): Chest Pain (ED) Referrals: PCP,NO [Primary Care Provider] - Follow up with primary Forms: [employer] ([place]elsh)
[2018-03-18 18:44] VITALS: BP 150/95; PULSE 90; RESP 18; TEMP 98.2; O2SAT 97
[2018-03-18] MEDS ORDERED: Lactated Ringer's 1,000 ML IV SCH (18:45)
--- NOTE | 2018-03-19 15:21 | CARD ---
APPROVED REPORT EKG Measurement Heart [id number] <Conclusion> Normal sinus rhythm Normal ECG
== END 2018-03-18 18:30 | disposition left against medical advice (07) ==
LOC: ED 17:47
DX: R07.9 Chest pain, unspecified (principal); I10 Essential (primary) hypertension; F17.210 Nicotine dependence, cigarettes, uncomplicated

== ENCOUNTER 2018-04-09 21:27 | Emergency (ER) | payer MEDICAID ==
[2018-04-09 21:29] VITALS: BMI 23.6
--- NOTE | 2018-04-09 21:43 | ED PDOC ---
Arrival/HPI - General Historian: Patient - History of Present Illness Time/Duration: 4-6 hours (16:00) Symptom Onset: Sudden Symptom Course: Unchanged Activities at Onset: Light Context: Work <Sheila Lam - Last Filed: 04/10/18 01:01> <BibHeber - Last Filed: 04/10/18 05:43> - General Chief Complaint: Abnormal Skin Integrity Time Seen by Provider: 04/09/18 21:41 - History of Present Illness Narrative History of Present Illness (Text): 04/09/18 21:41 42 year old male, whose past medical history includes hypertension and alcohol abuse, who presents to the emergency department brought in by EMS for right forearm leong. Patient states he burned his right forearm with a blowtorch while working on a roof at 16:30 today. Patient complaining of pain to the area and denies any decreased range of motion or weakness/numbness/tingling in the extremity. Patient also reports he dropped a can of tar on to his left second toe and is now experiencing pain/swelling to the area. Patient notes he had 2 beers earlier today after burning his forearm. Patient's last tetanus was on . Patient also reports he has been feeling depressed and expressing suicidal ideation after his broke up with him 3 days prior. pt states he had thoughts of suicide 3 days ago but denies SI currently. Patient denies any fall, head trauma, headache, dizziness, fever, chills, homicidal ideation, or any other complaints. (Sheila Lam) Past Medical History - Provider Review Nursing Documentation Reviewed: Yes - Travel History Have you recently traveled outside [place] w/in the past 3 mons?: No - Infectious Disease Hx of Infectious Diseases: None - Tetanus Immunization Tetanus Immunization: Up to Date - Past Medical History Past Medical History: No Previous - Cardiac Hx Cardiac Disorders: Yes Hx Hypertension: Yes - Pulmonary Hx Respiratory Disorders: No Hx Tuberculosis: No - Neurological Hx Neurological Disorder: No HX Cerebrovascular Accident: No Hx Seizures: No - HEENT Hx HEENT Disorder: No - Renal Hx Renal Disorder: No - Endocrine/Metabolic Hx Endocrine Disorders: No - Hematological/Oncological Hx Blood Disorders: Yes Hx Cancer: No Hx Hepatitis B: Yes Hx Hepatitis C: Yes - Integumentary Hx Dermatological Disorder: No - Musculoskeletal/Rheumatological Hx Musculoskeletal Disorders: No Hx Falls: No - Gastrointestinal Hx Gastrointestinal Disorders: No - Genitourinary/Gynecological Hx Genitourinary Disorders: No Hx Sexually Transmitted Diseases: No - Psychiatric Hx Psychophysiologic Disorder: Yes Hx Depression: Yes Hx Emotional Abuse: No Hx Physical Abuse: No Hx Substance Use: No Other/Comment: SUBSTANCE ABUSE PROBLEM ALCOHOL - Past Surgical History Past Surgical History: No Previous - Anesthesia Hx Anesthesia: Yes Hx Anesthesia Reactions: No Hx Malignant Hyperthermia: No - Suicidal Assessment Feels Threatened In Home Enviroment: No <Sheila Lam - Last Filed: 04/10/18 01:01> Family/Social History - Physician Review Nursing Documentation Reviewed: Yes Family/Social History: Unknown Family HX Smoking Status: Heavy Smoker > 10 Cigarettes Daily Hx Alcohol Use: Yes Amount per day: 3 Hx Substance Use: No Hx Substance Use Treatment: No <Sheila Lam - Last Filed: 04/10/18 01:01> Allergies/Home Meds <Sheila Lam - Last Filed: 04/10/18 01:01> <Heber Bucio - Last Filed: 04/10/18 05:43> Allergies/Adverse Reactions: Allergies cephalexin [From Keflex] Allergy (Verified 02/04/18 15:44) NAUSEA Penicillins Allergy (Verified 02/04/18 15:40) RASH Review of Systems - Physician Review All systems were reviewed & negative as marked: Yes - Review of Systems Constitutional: Normal. absent: Fevers Respiratory: Normal. absent: SOB, Cough Cardiovascular: absent: Chest Pain, Palpitations Gastrointestinal: Normal. absent: Abdominal Pain, Diarrhea, Nausea, Vomiting Genitourinary Male: Normal. absent: Dysuria, Frequency, Hematuria, Urinary Output Changes Musculoskeletal: Other (+left 2nd toe pain). absent: Back Pain, Neck Pain Skin: Rash, Other (+right forearm leong) Neurological: Normal. absent: Headache, Dizziness Endocrine: Normal Hemo/Lymphatic: Normal Psychiatric: Depression, Suicidal Ideation. absent: Anxiety <Sheila Lam - Last Filed: 04/10/18 01:01> Physical Exam Vital Signs Reviewed: Yes Temperature: Afebrile Blood Pressure: Normal Pulse: Regular Respiratory Rate: Normal Appearance: Positive for: Well-Appearing, Non-Toxic, Comfortable Pain Distress: None Mental Status: Positive for: Alert and Oriented X 3 - Systems Exam Head: Present: Atraumatic, Normocephalic Pupils: Present: PERRL Extroacular Muscles: Present: EOMI Conjunctiva: Present: Normal Mouth: Present: Moist Mucous Membranes Neck: Present: Normal Range of Motion Respiratory/Chest: Present: Clear to Auscultation, Good Air Exchange. No: Respiratory Distress, Accessory Muscle Use Cardiovascular: Present: Regular Rate and Rhythm, Normal S1, S2. No: Murmurs Abdomen: No: Tenderness, Distention, Peritoneal Signs Back: Present: Normal Inspection Upper Extremity: Present: Normal ROM, NORMAL PULSES, Neurovascularly Intact, Capillary Refill < 2s, Other (4 linear 2nd degress leong of varying sizes, approximately 2cm-5cm in length, with slight surrounding erythema to right medal forearm, no tenderness, no purulent discharge to the area). No: Cyanosis , Edema, Temperature Abnormalties Lower Extremity: Present: NORMAL PULSES, Normal ROM, Swelling (Left 2nd toe swelling with small area of ecchymosis), Neurovascularly Intact, Capillary Refill < 2 s. No: Edema, Cyanosis, Erythema, Deformity, Temperature Abnormalties Neurological: Present: Speech Normal, Motor Func Grossly Intact, Normal Sensory Function, Gait Normal Skin: Present: Warm, Dry, Normal Color. No: Rashes Psychiatric: Present: Alert, Oriented x 3 <Sheila Lam - Last Filed: 04/10/18 01:01> Vital Signs Temp Pulse Resp BP Pulse Ox 04/10/18 04:00 80 18 136/70 99 04/09/18 21:28 97.3 F L 81 18 147/72 100 Medical Decision Making <Sheila Lam - Last Filed: 04/10/18 01:01> <Heber Bucio - Last Filed: 04/10/18 05:43> ED Course and Treatment: 04/09/18 21:42 42 year old male complaining of right forearm leong while working at 16:30, left 2nd toe pain. Admits to drinking alcohol tonight Patient is nontoxic well-appearing in no distress vital signs are stable. leong cleaned and silvadene applied; dressing applied. bactrim given Po motrin 600mg given for pain. tetanus is up to date. xray left foot 2nd toe; no fracture CBC WNL CMP WNL Tylenol WNL Salicylate WNL Alcohol level:370 Urine drug screen wnl UA; wnl cxr FROM 03/08/18 reviewed; no infiltrate, no effusion ekg: Normal sinus rhythm at 67 bpm normal axis normal intervals no ST elevations pt is medically cleared for PES evaluation Patient was seen and evaluated by PES screener pt cleared psychiatrically for discharge. Impression; burn, forearm, alcohol use, depression Keep wounds clean and dry Apply Silvadene twice daily to affected area Follow-up with primary care physician within the next 2 days Follow-up with the [facility] Take Bactrim twice daily 7 days Return immediately if signs of infection develop: High fevers, increasing pain, increasing redness, increasing swelling, purulent discharge Return if any other concerning symptoms develop 04/10/18 01:50 case signed out to dr. bucio pending sobriety. (Sheila Lam) 04/10/18 05:34 Pt awake, alert, and in no acute distress. Ambulating with steady gait, clinically sober. Pt stable for d/c. (Heber Bucio) - Lab Interpretations Lab Results: 04/09/18 22:14 04/09/18 22:14 Lab Results 04/09/18 22:14: Alcohol, Quantitative 370 H* 04/09/18 22:14: Salicylates < 1 L, Acetaminophen < 10.0 L 04/09/18 22:14: Sodium 151 H, Potassium 4.5, Chloride 109 H, Carbon Dioxide 27, Anion Gap 19, BUN 5 L, Creatinine 0.6 L, Est GFR ( Amer) > 60, Est GFR ( Non-Af Amer) > 60, Random Glucose 104, Calcium 8.9, Total Bilirubin 0.4, AST 56 , ALT 34, Alkaline Phosphatase 65, Total Protein 8.3, Albumin 4.6, Globulin 3.8 , Albumin/Globulin Ratio 1.2 04/09/18 22:14: WBC 5.7, RBC 5.14, Hgb 17.5, Hct 48.1, MCV 93.6, MCH 34.0, MCHC 36.4, RDW 15.7 H, Plt Count 198, MPV 9.7, Gran % 40.6 L, Lymph % (Auto) 51.9 H, [place] % (Auto) 4.7, Eos % (Auto) 1.9, Baso % (Auto) 0.9, Gran # 2.31, Lymph # ( Auto) 3.0, [place] # (Auto) 0.3, Eos # (Auto) 0.1, Baso # (Auto) 0.05 - RAD Interpretation Radiology Orders: 04/09/18 22:14 FOOT LEFT 2ND DIGIT (TOE) [RAD] Stat - Medication Orders Current Medication Orders: Discontinued Medications Ibuprofen (Motrin Tab) 600 mg PO STAT STA Stop: 04/09/18 22:09 Last Admin: 04/09/18 22:22 Dose: 600 mg MAR Pain/Vitals Document 04/09/18 22:22 AD (Rec: 04/09/18 22:22 AD [id number]) Pain Reassessment Is This A Pain ReAssessment? No Presence of Pain Presence of Pain Yes Pain Scale Used Pain Scale Used Numeric Location Intensity 5 Silver Sulfadiazine (Silvadene 1% 25 Gm) 1 gm TP STAT STA Stop: 04/09/18 22:02 Last Admin: 04/09/18 22:23 Dose: 1 gm Trimethoprim/Sulfamethoxazole (Bactrim Ds Tab) 1 tab PO STAT STA PRN Reason: Protocol Stop: 04/09/18 22:04 Last Admin: 04/09/18 22:22 Dose: 1 tab - Scribe Statement The provider has reviewed the documentation as recorded by the Scribe <Sheila Lam - Last Filed: 04/10/18 01:01> - PA / FAMILY LAW MEDIATOR / Resident Statement MD/DO has reviewed & agrees with the documentation as recorded. <Heber Bucio - Last Filed: 04/10/18 05:43> - Scribe Statement Renetta Mena Provider Scribe Attestation: All medical record entries made by the Scribe were at my direction and personally dictated by me. I have reviewed the chart and agree that the record accurately reflects my personal performance of the history, physical exam, medical decision making, and the department course for this patient. I have also personally directed, reviewed, and agree with the discharge instructions and disposition. (Sheila Lam) Disposition/Present on Arrival - Present on Arrival Any Indicators Present on Arrival: No History of DVT/PE: No History of Uncontrolled Diabetes: No Urinary Catheter: No History of Decub. Ulcer: No History Surgical Site Infection Following: None - Disposition Have Diagnosis and Disposition been Completed?: Yes Patient Plan: Discharge <Sheila Lam - Last Filed: 04/10/18 01:01> - Present on Arrival Any Indicators Present on Arrival: No - Disposition Have Diagnosis and Disposition been Completed?: Yes Disposition Time: 05:42 Patient Plan: Discharge <Heber Bucio - Last Filed: 04/10/18 05:43> - Disposition Diagnosis: Burn of arm, Alcohol use, Contusion, toe, Depression Disposition: HOME/ ROUTINE Patient Problems: Current Active Problems Problem Status Onset Alcohol use Acute Burn of arm Acute Contusion, toe Acute Depression Acute Condition: GOOD Discharge Instructions (ExitCare): Alcohol Use - When Is Drinking a Problem?, Contusion (DC), Skin Leong (DC), Toe Injury (DC) Additional Instructions: Keep wounds clean and dry Apply Silvadene twice daily to affected area Follow-up with primary care physician within the next 2 days [facility] Take Bactrim twice daily 7 days Return immediately if signs of infection develop: High fevers, increasing pain, increasing redness, increasing swelling, purulent discharge Return if any other concerning symptoms develop Prescriptions: Silver Sulfadiazine 1% [Silver Sulfadiazine] 1 appl TP BID #1 jar Sulfamethoxazole/Trimethoprim [Bactrim DS 800 mg-160 mg] 1 tab PO BID #14 tab Referrals: [facility] [Outside] - Follow up with primary [facility] [Outside] - Follow up with primary Zoya Olmstead MD [Staff Provider] - Follow up with primary PCP,NO [Primary Care Provider] - Follow up with primary Pierce Kong DPM [Staff Provider] - Follow up with primary Nicky Carrasco MD [Staff Provider] - Follow up with primary Forms: [facility] (Slovak), WORK NOTE
[2018-04-09] MEDS ORDERED: Silver Sulfadiazine 1% Cream (25 gm) TP STA (22:01)
[2018-04-09] MEDS ORDERED: Tmp-Smz 800 mg-160 mg DS Tab PO STA (22:03)
[2018-04-09 22:04] VITALS: RESP 18
[2018-04-09 22:25] LABS: BASO # 0.05 K/mm3 (0.0-2.0); BASO % 0.9 % (0.0-3.0); EOS # 0.1 (0.0-0.7); EOS % 1.9 % (1.5-5.0); GRAN # 2.31 (1.4-6.5); GRAN % 40.6 % (50.0-68.0); HEMOGLOBIN 17.5 g/dL (14.0-18.0); LYMPH % 51.9 % (22.0-35.0); MEAN CELL VOLUME 93.6 fl (80.0-105.0); MEAN CORPUSCULAR HGB CONC 36.4 g/dl (31.0-37.0); MEAN PLATELET VOLUME 9.7 fl (7.0-11.0); MONO # 0.3 (0.1-0.6); MONO % 4.7 % (1.0-6.0); RBC 5.14 10^6/uL (3.5-6.1); RED CELL DISTRIBUTION WIDTH 15.7 % (11.5-14.5); WHITE BLOOD COUNT 5.7 10^3/ul (4.5-11.0)
[2018-04-09 22:36] LABS: ACETAMINOPHEN < 10.0 ug/ml (10.0-20.0); ALB/GLOB RATIO 1.2 (1.1-1.8); ALBUMIN 4.6 g/dL (3.0-4.8); ALT/SGPT 34 U/L (7-56); AST/SGOT 56 U/L (17-59); BLOOD UREA NITROGEN 5 mg/dL (7-21); CALCIUM 8.9 mg/dL (8.4-10.5); GFR AFRICAN-AMERICAN > 60; GFR NON-AFRICAN AMERICAN > 60; SALICYLATE < 1 mg/dL (2.0-20.0)
[2018-04-10 04:53] VITALS: O2SAT 99
[2018-04-10 06:26] VITALS: BP 132/74; PULSE 76; TEMP 97.7
--- NOTE | 2018-04-10 09:27 | RAD ---
PROCEDURE: Radiographs of the left 2nd toe. TECHNIQUE:: AP radiograph of the left foot, with oblique and lateral view of the left 2nd toe. COMPARISON: None. FINDINGS: BONES: Normal. No fracture. JOINTS: Normal. SOFT TISSUES: Normal. OTHER FINDINGS: None. IMPRESSION: Normal leftNo definitive evidence of acute displaced fracture nor dislocation. If symptoms persist or occult fracture suspected clinically recommend repeat radiographs in 5-10 days as most fractures should become radiographically evident in this timeframe. Great toe radiographs.
--- NOTE | 2018-04-10 09:42 | CARD ---
APPROVED REPORT EKG Measurement Heart [id number] <Conclusion> Normal sinus rhythm Normal ECG
== END 2018-04-10 06:19 | disposition home or self-care (01) ==
LOC: ED 21:27
DX: T22.211A Burn of second degree of right forearm, initial encounter (principal); X08.8XXA Exposure to other specified smoke, fire and flames, initial encounter; I10 Essential (primary) hypertension; F17.210 Nicotine dependence, cigarettes, uncomplicated

== ENCOUNTER 2018-04-27 11:47 | Emergency (ER) | payer MEDICAID ==
[2018-04-27 12:43] VITALS: BMI 19.5
[2018-04-27 12:47] VITALS: BP 126/78; PULSE 95; RESP 18; TEMP 98.2; O2SAT 95
== END 2018-04-27 16:11 | disposition left against medical advice (07) ==
LOC: ED 11:47
DX: Z02.89 Encounter for other administrative examinations (principal); M79.672 Pain in left foot

== ENCOUNTER 2018-05-13 23:07 | Emergency (ER) | payer MEDICAID ==
[2018-05-13 23:15] VITALS: BMI 28.8
--- NOTE | 2018-05-13 23:41 | ED PDOC ---
Arrival/HPI - General Historian: Patient, EMS <Sheila Lam - Last Filed: 05/14/18 03:58> <Heber Bucio - Last Filed: 05/14/18 06:11> - General Chief Complaint: Alcohol Ingestion Time Seen by Provider: 05/13/18 23:18 - History of Present Illness Narrative History of Present Illness (Text): 05/13/18 23:40 42-year-old male presents today with depression and alcohol intoxication. Patient was brought in by ambulance saying that he needs help. Patient states he is depressed because both his father and his brother dying. Patient admits to alcohol use today. He denies headaches dizziness or weakness denies chest pain or shortness of breath. He denies fevers or chills. Patient denies any trauma or injury. No other complaints (Sheila Lam) Past Medical History - Provider Review Nursing Documentation Reviewed: Yes - Travel History Have you recently traveled outside [place] w/in the past 3 mons?: No - Infectious Disease Hx of Infectious Diseases: None - Tetanus Immunization Tetanus Immunization: Up to Date - Past Medical History Past Medical History: No Previous - Cardiac Hx Cardiac Disorders: Yes Hx Hypertension: Yes - Pulmonary Hx Respiratory Disorders: No Hx Tuberculosis: No - Neurological Hx Neurological Disorder: No HX Cerebrovascular Accident: No Hx Seizures: No - HEENT Hx HEENT Disorder: No - Renal Hx Renal Disorder: No - Endocrine/Metabolic Hx Endocrine Disorders: No - Hematological/Oncological Hx Blood Disorders: Yes Hx Cancer: No Hx Hepatitis B: Yes Hx Hepatitis C: Yes - Integumentary Hx Dermatological Disorder: No - Musculoskeletal/Rheumatological Hx Musculoskeletal Disorders: No Hx Falls: No - Gastrointestinal Hx Gastrointestinal Disorders: No - Genitourinary/Gynecological Hx Genitourinary Disorders: No Hx Sexually Transmitted Diseases: No - Psychiatric Hx Psychophysiologic Disorder: Yes Hx Depression: Yes Hx Emotional Abuse: No Hx Physical Abuse: No Hx Substance Use: No Other/Comment: SUBSTANCE ABUSE PROBLEM ALCOHOL - Past Surgical History Past Surgical History: No Previous - Anesthesia Hx Anesthesia: Yes Hx Anesthesia Reactions: No Hx Malignant Hyperthermia: No - Suicidal Assessment Feels Threatened In Home Enviroment: No <Sheila Lam - Last Filed: 05/14/18 03:58> Family/Social History - Physician Review Nursing Documentation Reviewed: Yes Family/Social History: Unknown Family HX Smoking Status: Heavy Smoker > 10 Cigarettes Daily Hx Alcohol Use: Yes Amount per day: 3 Hx Substance Use: No Hx Substance Use Treatment: No <Sheila Lam - Last Filed: 05/14/18 03:58> Allergies/Home Meds <Sheila Lam - Last Filed: 05/14/18 03:58> <Heber Bucio - Last Filed: 05/14/18 06:11> Allergies/Adverse Reactions: Allergies cephalexin [From Keflex] Allergy (Verified 02/04/18 15:44) NAUSEA Penicillins Allergy (Verified 02/04/18 15:40) RASH Home Medications: Home Meds Medication Instructions Recorded Confirmed No Known Home Med 05/14/18 05/14/18 Review of Systems - Review of Systems Constitutional: absent: Fatigue, Fevers Respiratory: absent: SOB, Cough Cardiovascular: absent: Chest Pain, Palpitations Gastrointestinal: absent: Abdominal Pain, Nausea, Vomiting Musculoskeletal: absent: Arthralgias Skin: absent: Rash, Pruritis Neurological: absent: Headache Psychiatric: Depression. absent: Anxiety, Suicidal Ideation <Sheila Lam - Last Filed: 05/14/18 03:58> Physical Exam - Systems Exam Head: Present: Atraumatic Mouth: Present: Moist Mucous Membranes Neck: Present: Normal Range of Motion Respiratory/Chest: Present: Clear to Auscultation, Good Air Exchange. No: Respiratory Distress, Accessory Muscle Use Cardiovascular: Present: Regular Rate and Rhythm, Normal S1, S2. No: Murmurs Abdomen: No: Tenderness, Rebound, Guarding Upper Extremity: Present: Normal ROM Lower Extremity: Present: Normal ROM Neurological: Present: GCS=15, Speech Normal Skin: Present: Warm, Dry, Normal Color. No: Rashes Psychiatric: Present: Alert, Oriented x 3, Depressed Mood, Intoxicated. No: Suicidal Ideation <Sheila Lam - Last Filed: 05/14/18 03:58> Vital Signs Temp Pulse Resp BP Pulse Ox 05/14/18 03:44 97.2 F L 76 21 111/57 L 96 05/13/18 23:56 125/87 Medical Decision Making <Sheila Lam - Last Filed: 05/14/18 03:58> <Heber Bucio - Last Filed: 05/14/18 06:11> ED Course and Treatment: 05/13/18 23:41 Patient is nontoxic well-appearing in no distress vital signs are stable. pt became agitated in er; pt was given 1mg of ativan IM. CBC WNL CMP WNL Tylenol WNL Salicylate WNL Alcohol level 369 Urine drug screen pending; pt refused UA; pending patient refused. cxr: wnl pt refused ekg; 05/14/18 03:55 case signed out to dr. bucio pending sobriety and PEs evaluation (Sheila Lam) 05/14/18 04:00 Case endorsed to me by PA for pending urine, sobriety and PES evaluation. Patient's current alcohol level is 369. Patient is currently resting in bed in no acute distress. Patient denies any new complaints. Will reassess and perform final disposition. 05/14/18 07:00 Case endorsed to pending sobriety/reassess/PES evaluation/Final disposition (Heber Bucio) - Lab Interpretations Lab Results: 05/14/18 02:09 05/14/18 02:09 Lab Results 05/14/18 02:09: Alcohol, Quantitative 369 H* 05/14/18 02:09: Salicylates < 1 L, Acetaminophen < 10.0 L 05/14/18 02:09: Sodium 148, Potassium 3.8, Chloride 109 H, Carbon Dioxide 24, Anion Gap 18, BUN 7, Creatinine 0.6 L, Est GFR ( Amer) > 60, Est GFR (Non -Af Amer) > 60, Random Glucose 87, Calcium 8.6, Total Bilirubin 0.4, AST 52, ALT 31, Alkaline Phosphatase 57, Total Protein 7.2, Albumin 3.9, Globulin 3.3, Albumin/Globulin Ratio 1.2 05/14/18 02:09: WBC 5.0, RBC 4.60, Hgb 15.6, Hct 43.1, MCV 93.7, MCH 33.9, MCHC 36.2, RDW 15.2 H, Plt Count 152, MPV 9.4, Gran % 23.6 L, Lymph % (Auto) 65.7 H, [place] % (Auto) 7.1 H, Eos % (Auto) 2.6, Baso % (Auto) 1.0, Gran # 1.17 L, Lymph # (Auto) 3.3, [place] # (Auto) 0.4, Eos # (Auto) 0.1, Baso # (Auto) 0.05 - RAD Interpretation Radiology Orders: 05/13/18 23:19 CHEST PORTABLE [RAD] Stat - Medication Orders Current Medication Orders: Discontinued Medications Lorazepam (Ativan) 1 mg IM ONCE ONE PRN Reason: Protocol Stop: 05/13/18 23:59 Last Admin: 05/14/18 00:05 Dose: 1 mg IM Administration Charges Document 05/14/18 00:05 RG (Rec: 05/14/18 02:28 RG [facility] [id number]) Injection Site MAR Injection Site Right Deltoid Charges for Administration # of IM Administrations 1 <Sheila Lam - Last Filed: 05/14/18 03:58> - Scribe Statement The provider has reviewed the documentation as recorded by the Scribe <Heber Bucio - Last Filed: 05/14/18 06:11> - Scribe Statement Santana Cross. All medical record entries made by the Scribe were at my direction and personally dictated by me. I have reviewed the chart and agree that the record accurately reflects my personal performance of the history, physical exam, medical decision making, and the department course for this patient. I have also personally directed, reviewed, and agree with the discharge instructions and disposition. (Heber Bucio) Disposition/Present on Arrival - Present on Arrival History of DVT/PE: No History of Uncontrolled Diabetes: No Urinary Catheter: No History of Decub. Ulcer: No History Surgical Site Infection Following: None <Sheila Lam - Last Filed: 05/14/18 03:58> - Present on Arrival Any Indicators Present on Arrival: No - Disposition Have Diagnosis and Disposition been Completed?: No Disposition Time: 07:00 <Heber Bucio - Last Filed: 05/14/18 06:11> - Disposition Diagnosis: Alcohol intoxication, Depression Patient Problems: Current Active Problems Problem Status Onset Alcohol intoxication Acute Depression Acute Condition: STABLE Referrals: Mag Kelly [facility] [Primary Care Provider] - Follow up with primary Forms: [employer] ([place])
[2018-05-14 02:17] LABS: BASO # 0.05 K/mm3 (0.0-2.0); EOS # 0.1 (0.0-0.7); EOS % 2.6 % (1.5-5.0); GRAN # 1.17 (1.4-6.5); GRAN % 23.6 % (50.0-68.0); HEMOGLOBIN 15.6 g/dL (14.0-18.0); LYMPH # 3.3 (1.2-3.4); LYMPH % 65.7 % (22.0-35.0); MEAN CELL VOLUME 93.7 fl (80.0-105.0); MEAN CORPUSCULAR HEMOGLOBIN 33.9 pg (25.0-35.0); MEAN CORPUSCULAR HGB CONC 36.2 g/dl (31.0-37.0); MEAN PLATELET VOLUME 9.4 fl (7.0-11.0); MONO # 0.4 (0.1-0.6); MONO % 7.1 % (1.0-6.0); RBC 4.6 10^6/uL (3.5-6.1); RED CELL DISTRIBUTION WIDTH 15.2 % (11.5-14.5)
[2018-05-14 02:41] LABS: ALB/GLOB RATIO 1.2 (1.1-1.8); ALBUMIN 3.9 g/dL (3.0-4.8); ALT/SGPT 31 U/L (7-56); AST/SGOT 52 U/L (17-59); BLOOD UREA NITROGEN 7 mg/dL (7-21); CALCIUM 8.6 mg/dL (8.4-10.5); GFR AFRICAN-AMERICAN > 60; GFR NON-AFRICAN AMERICAN > 60
[2018-05-14 03:12] LABS: ACETAMINOPHEN < 10.0 ug/ml (10.0-20.0); SALICYLATE < 1 mg/dL (2.0-20.0)
[2018-05-14 07:23] VITALS: O2SAT 98
--- NOTE | 2018-05-14 09:52 | ED PDOC ---
Physical Exam Vital Signs Reviewed: Yes Vital Signs Temp Pulse Resp BP Pulse Ox 05/14/18 07:23 72 17 120/68 98 05/14/18 03:44 97.2 F L 76 21 111/57 L 96 05/13/18 23:56 125/87 Blood Pressure: Normal - Systems Exam Head: Present: Atraumatic, Normocephalic Pupils: Present: PERRL Extroacular Muscles: Present: EOMI Conjunctiva: Present: Normal Mouth: Present: Moist Mucous Membranes Neck: Present: Normal Range of Motion Respiratory/Chest: Present: Clear to Auscultation, Good Air Exchange. No: Respiratory Distress, Accessory Muscle Use Cardiovascular: Present: Regular Rate and Rhythm, Normal S1, S2. No: Murmurs Abdomen: No: Tenderness, Distention, Peritoneal Signs Back: Present: Normal Inspection Upper Extremity: Present: Normal Inspection. No: Cyanosis, Edema Lower Extremity: Present: Normal Inspection. No: Edema Neurological: Present: GCS=15, CN II-XII Intact, Speech Normal Skin: Present: Warm, Dry, Normal Color. No: Rashes Psychiatric: Present: Alert, Oriented x 3, Normal Insight, Normal Concentration , Depressed Mood, Intoxicated. No: Suicidal Ideation Medical Decision Making ED Course and Treatment: 05/14/18 7:00 Pt signed out to me by Dr. Mccartney, pending sobriety/PES eval/reassessment/ final disposition. 05/14/18 09:48 Pt is cleared medically and by PES. Pt is awake, alert, oriented x3. Pt is stable for d/c. - Lab Interpretations Lab Results: 05/14/18 02:09 05/14/18 02:09 Lab Results 05/14/18 02:09: Alcohol, Quantitative 369 H* 05/14/18 02:09: Salicylates < 1 L, Acetaminophen < 10.0 L 05/14/18 02:09: Sodium 148, Potassium 3.8, Chloride 109 H, Carbon Dioxide 24, Anion Gap 18, BUN 7, Creatinine 0.6 L, Est GFR ( Amer) > 60, Est GFR (Non -Af Amer) > 60, Random Glucose 87, Calcium 8.6, Total Bilirubin 0.4, AST 52, ALT 31, Alkaline Phosphatase 57, Total Protein 7.2, Albumin 3.9, Globulin 3.3, Albumin/Globulin Ratio 1.2 05/14/18 02:09: WBC 5.0, RBC 4.60, Hgb 15.6, Hct 43.1, MCV 93.7, MCH 33.9, MCHC 36.2, RDW 15.2 H, Plt Count 152, MPV 9.4, Gran % 23.6 L, Lymph % (Auto) 65.7 H, [place] % (Auto) 7.1 H, Eos % (Auto) 2.6, Baso % (Auto) 1.0, Gran # 1.17 L, Lymph # (Auto) 3.3, [place] # (Auto) 0.4, Eos # (Auto) 0.1, Baso # (Auto) 0.05 - RAD Interpretation Radiology Orders: 05/13/18 23:19 CHEST PORTABLE [RAD] Stat - Medication Orders Current Medication Orders: Discontinued Medications Lorazepam (Ativan) 1 mg IM ONCE ONE PRN Reason: Protocol Stop: 05/13/18 23:59 Last Admin: 05/14/18 00:05 Dose: 1 mg IM Administration Charges Document 05/14/18 00:05 RG (Rec: 05/14/18 02:28 [id number]) Injection Site MAR Injection Site Right Deltoid Charges for Administration # of IM Administrations 1 - Scribe Statement The provider has reviewed the documentation as recorded by the Scribe Filomena Cobb All medical record entries made by the Scribe were at my direction and personally dictated by me. I have reviewed the chart and agree that the record accurately reflects my personal performance of the history, physical exam, medical decision making, and the department course for this patient. I have also personally directed, reviewed, and agree with the discharge instructions and disposition. Disposition/Present on Arrival - Present on Arrival Any Indicators Present on Arrival: No History of DVT/PE: No History of Uncontrolled Diabetes: No Urinary Catheter: No History of Decub. Ulcer: No History Surgical Site Infection Following: None - Disposition Have Diagnosis and Disposition been Completed?: Yes Diagnosis: Alcohol intoxication, Depression Disposition: HOME/ ROUTINE Disposition Time: 09:00 Patient Problems: Current Active Problems Problem Status Onset Alcohol intoxication Acute Depression Acute Condition: STABLE Discharge Instructions (ExitCare): Depression, Alcohol Abuse and Alcoholism (DC ) Additional Instructions: follow up as instructed by circulation worker. return to er with worsening symptoms or concerns. Referrals: Mag Kelly [facility] [Primary Care Provider] - Follow up with primary Forms: [employer] (Guamanian)
--- NOTE | 2018-05-14 10:28 | RAD ---
HISTORY: pes COMPARISON: 02/02/2018 FINDINGS: LUNGS: No active pulmonary disease. PLEURA: No significant pleural effusion identified, no pneumothorax apparent. CARDIOVASCULAR: Normal. OSSEOUS STRUCTURES: No significant abnormalities. VISUALIZED UPPER ABDOMEN: Normal. OTHER FINDINGS: None. IMPRESSION: No active disease. No significant interval change compared to the prior examination(s).
[2018-05-14 10:53] VITALS: BP 120/66; PULSE 70; RESP 18; TEMP 97.5
--- NOTE | 2018-05-14 16:59 | CARD ---
APPROVED REPORT EKG Measurement Heart [id number] <Conclusion> Normal sinus rhythm Normal ECG
== END 2018-05-14 10:45 | disposition home or self-care (01) ==
LOC: ED 23:07
DX: F10.129 Alcohol abuse with intoxication, unspecified (principal); F32.9 Major depressive disorder, single episode, unspecified; F17.210 Nicotine dependence, cigarettes, uncomplicated; I10 Essential (primary) hypertension
CPT/HCPCS: 71045; 80053; 80320; 80329; 85025; 90791; 93005; 96372; 99284; J2060

== ENCOUNTER 2018-06-14 04:41 | Emergency (ER) | payer MEDICAID ==
[2018-06-14 04:47] VITALS: BMI 23.6
[2018-06-14 04:53] VITALS: BP 122/67; PULSE 104; RESP 18; TEMP 97.9
--- NOTE | 2018-06-14 05:20 | ED PDOC ---
Arrival/HPI - General Chief Complaint: Abnormal Skin Integrity Time Seen by Provider: 06/14/18 05:15 Historian: Patient - History of Present Illness Narrative History of Present Illness (Text): 06/14/18 05:15 A 42 year old male, with no significant past medical history, presents to the emergency department with a complaint of 3 week duration rash to his back, inner thighs, legs, and feet. The patient states that he presents today because the rash is painful. He notes that he was seen in the [facility] emergency department for the same complaint for which he was prescribed a cream. The patient notes that he has not taken or started on any new medications. He denies fevers, chills, headache, dizziness, chest pain, shortness of breath, dyspnea on exertion, cough, abdominal pain, nausea, vomiting, diarrhea, back pain, neck pain, urinary/bowel changes, or any other complaint. Time/Duration: Other (3 weeks) Symptom Onset: Gradual Symptom Course: Worsening Activities at Onset: Rest, Light Context: Home Past Medical History - Provider Review Nursing Documentation Reviewed: Yes - Infectious Disease Hx of Infectious Diseases: None - Tetanus Immunization Tetanus Immunization: Up to Date - Past Medical History Past Medical History: No Previous - Cardiac Hx Cardiac Disorders: Yes Hx Hypertension: Yes - Pulmonary Hx Tuberculosis: No - Neurological HX Cerebrovascular Accident: No Hx Seizures: No - HEENT Hx HEENT Disorder: No - Renal Hx Renal Disorder: No - Endocrine/Metabolic Hx Endocrine Disorders: No - Hematological/Oncological Hx Cancer: No - Integumentary Hx Dermatological Disorder: No - Musculoskeletal/Rheumatological Hx Musculoskeletal Disorders: No Hx Falls: No - Gastrointestinal Hx Gastrointestinal Disorders: No - Genitourinary/Gynecological Hx Sexually Transmitted Diseases: No - Psychiatric Hx Psychophysiologic Disorder: Yes Hx Depression: Yes Hx Emotional Abuse: No Hx Physical Abuse: No Hx Substance Use: No Other/Comment: SUBSTANCE ABUSE PROBLEM ALCOHOL - Past Surgical History Past Surgical History: No Previous - Anesthesia Hx Anesthesia: Yes Hx Anesthesia Reactions: No Hx Malignant Hyperthermia: No - Suicidal Assessment Feels Threatened In Home Enviroment: No Family/Social History - Physician Review Nursing Documentation Reviewed: Yes Family/Social History: No Known Family HX Smoking Status: Heavy Smoker > 10 Cigarettes Daily Hx Alcohol Use: Yes Frequency of alcohol use: Daily Amount per day: 3 Hx Substance Use: No Hx Substance Use Treatment: No Allergies/Home Meds Allergies/Adverse Reactions: Allergies cephalexin [From Keflex] Allergy (Verified 06/14/18 04:47) NAUSEA Penicillins Allergy (Verified 06/14/18 04:47) RASH Review of Systems - Physician Review All systems were reviewed & negative as marked: Yes - Review of Systems Constitutional: absent: Fevers Respiratory: absent: SOB, Cough Cardiovascular: absent: Chest Pain, REYNOLDS Gastrointestinal: absent: Abdominal Pain, Stool Changes, Diarrhea, Nausea, Vomiting Genitourinary Male: absent: Urinary Output Changes Musculoskeletal: absent: Back Pain, Neck Pain Skin: Rash Neurological: absent: Headache, Dizziness Physical Exam - Physical Exam Narrative Physical Exam (Text): 06/14/18 05:20 Gen: VS reviewed, alert, well developed, well nourished, non-toxic, mild distress. ENT: Normal pharynx. Eye: EOMI, PERRL. Neck: No JVD, supple, no adenopathy. CV: Regular rate, regular rhythm, no rubs, no murmur, no gallops, S1, S2, pulses equal and strong. Pulm: No distress, clear to auscultation, no wheeze, no rhonchi, breath sounds equal, no rales. Abd: Soft, non-tender, no guarding, no rebound, no rigidity, normal bowel sounds. Ext: No edema. Skin: Serpiginous rash to the right buttock, bilateral inner things, bilateral lower legs and near soles of his feet. Tender to touch. Some lesions are circular, some are linear. Psych: Responds appropriately to questions, normal affect. Neuro: Oriented x 3, CN2-12 intact grossly, motor intact, sensation intact. Vital Signs Reviewed: Yes Vital Signs Temp Pulse Resp BP Pulse Ox 06/14/18 07:10 98 06/14/18 04:42 97.9 F 104 H 18 122/67 96 Temperature: Afebrile Blood Pressure: Normal Pulse: Tachycardic Respiratory Rate: Normal Appearance: Positive for: Well-Appearing, Non-Toxic, Comfortable Pain Distress: None Mental Status: Positive for: Alert and Oriented X 3 Medical Decision Making ED Course and Treatment: 06/14/18 05:22 Impression: A 42 year old male presents to the emergency department with a complaint of 3 week duration, painful rash to his buttock, back, and lower extremities. Plan: -- Blood Culture -- Labs -- Tylenol and Toradol -- Reassess and disposition Progress Notes: 06/14/18 05:47: Case discussed in detail with medical assistant prn. 06/14/18 06:06 Leaving Against Medical Advice (AMA): The patient is choosing to leave against medical advice. I have personally explained to the patient that choosing to do so may result in permanent bodily harm or . I have discussed at great length that without further evaluation and monitoring there may be unforeseen circumstances and/or deterioration causing permanent bodily harm or as a result of their choice. The patient is alert, oriented, and shows the mental capacity to make clear decisions regarding the patients health care at this time. The patient continues to wish to leave against medical advice. In light of the patients decision to leave against medical advice, follow-up has been arranged and the patient is aware of the importance to following up as instructed. The patient has been advised that they should return to the emergency room immediately if they change their mind at any time, or if their condition begins to change or worsen in any way. 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 patient admits that he was recently "sliding around ecal matter". details of this event were not disclosed. Patient was also noted to have sig pain around some areas of the rash and it intended to tx the patient with iv abx of secondary cellulitis. patient ultimately did not want to stay in the hospital stating "if i miss one more day i will lose my kristin". patient informed to return for any new or worsening symptoms. - Lab Interpretations Lab Results: 06/14/18 05:37 06/14/18 05:37 Lab Results 06/14/18 05:37: Alcohol, Quantitative 246 H 06/14/18 05:37: Sodium 145, Potassium 3.7, Chloride 111 H, Carbon Dioxide 20 L, Anion Gap 17, BUN 11, Creatinine 1.0, Est GFR ( Amer) > 60, Est GFR (Non- Af Amer) > 60, Random Glucose 106, Calcium 8.9, Total Bilirubin 0.8, AST 46, ALT 36, Alkaline Phosphatase 54, Total Protein 7.5, Albumin 4.1, Globulin 3.4, Albumin/Globulin Ratio 1.2 06/14/18 05:37: WBC 6.9 D, RBC 4.63, Hgb 15.6, Hct 43.6, MCV 94.2, MCH 33.7, MCHC 35.8, RDW 15.5 H, Plt Count 122, MPV 9.4, Gran % 56.8, Lymph % (Auto) 30.7 , [place] % (Auto) 11.5 H, Eos % (Auto) 0.9 L, Baso % (Auto) 0.1, Gran # 3.89, Lymph # (Auto) 2.1, [place] # (Auto) 0.8 H, Eos # (Auto) 0.1, Baso # (Auto) 0.01 I have reviewed the lab results: Yes - Medication Orders Current Medication Orders: Discontinued Medications Acetaminophen (Tylenol 325mg Tab) 975 mg PO STAT STA Stop: 06/14/18 05:25 Last Admin: 06/14/18 05:50 Dose: 975 mg MAR Pain/Vitals Document 06/14/18 05:50 SS (Rec: 06/14/18 05:51 SS [id number]) Pain Reassessment Is This A Pain ReAssessment? No Sleep Is patient sleeping during reassessment? No Presence of Pain Presence of Pain Yes Ketorolac Tromethamine (Toradol) 30 mg IVP STAT STA Stop: 06/14/18 05:25 Last Admin: 06/14/18 05:51 Dose: 30 mg MAR Pain Assessment Document 06/14/18 05:51 SS (Rec: 06/14/18 05:51 SS [id number]) Pain Reassessment Is this a pain reassessment? No Presence of Pain Presence of Pain Yes IVP Administration Document 06/14/18 05:51 SS (Rec: 06/14/18 05:51 SS [id number]) Charges for Administration # of IVP Administrations 1 - Scribe Statement The provider has reviewed the documentation as recorded by the Audeliaibirasema Ortiz Provider Scribe Attestation: All medical record entries made by the Scribe were at my direction and personally dictated by me. I have reviewed the chart and agree that the record accurately reflects my personal performance of the history, physical exam, medical decision making, and the department course for this patient. I have also personally directed, reviewed, and agree with the discharge instructions and disposition. Disposition/Present on Arrival - Present on Arrival Any Indicators Present on Arrival: No History of DVT/PE: No History of Uncontrolled Diabetes: No Urinary Catheter: No History of Decub. Ulcer: No History Surgical Site Infection Following: None - Disposition Have Diagnosis and Disposition been Completed?: Yes Diagnosis: Cutaneous larva migrans Disposition: AGAINST MEDICAL ADVICE Disposition Time: 03:49 Condition: STABLE Discharge Instructions (ExitCare): Hookworm Infection, Cutaneous Larva Migrans Print Language: GREEK Additional Instructions: BEBA STERN, thank you for letting us take care of you today. Your provider was Dr. Gerard Schmid and you were treated for skin problem. The emergency medical care you received today was directed at your acute symptoms. If you were prescribed any medication, please fill it and take as directed. It may take several days for your symptoms to resolve. Return to the Emergency Department if your symptoms worsen, do not improve, or if you have any other problems. Please contact your doctor or call one of the physicians/clinics you have been referred to that are listed on the Patient Visit Information form that is included in your discharge packet. Bring any paperwork you were given at discharge with you along with any medications you are taking to your follow up visit. Our treatment cannot replace ongoing medical care by a primary care provider outside of the emergency department. Thank you for allowing the [facility] team to be part of your care today. If you had an X-Ray or CT scan: A Radiologist will review the ED reading if any change in treatment is needed we will contact you. If you had a blood, urine, or wound culture: It will take several days for the results, if any change in treatment is needed we will contact you. If you had an STI test: It will take 48 hours for the results. Please call after 1 week if you have not heard back. Prescriptions: Albendazole [Albenza 200 mg Tab] 400 mg PO DAILY 3 Days #3 tab Ibuprofen [Motrin Tab] 600 mg PO QID #30 tab Referrals: Mag Kelly APN-[facility] [Primary Care Provider] - Follow up with primary Forms: [employer] (Indian), WORK NOTE
[2018-06-14 05:47] LABS: BASO # 0.01 K/mm3 (0.0-2.0); BASO % 0.1 % (0.0-3.0); EOS # 0.1 (0.0-0.7); EOS % 0.9 % (1.5-5.0); GRAN # 3.89 (1.4-6.5); GRAN % 56.8 % (50.0-68.0); HEMOGLOBIN 15.6 g/dL (14.0-18.0); LYMPH # 2.1 (1.2-3.4); LYMPH % 30.7 % (22.0-35.0); MEAN CELL VOLUME 94.2 fl (80.0-105.0); MEAN CORPUSCULAR HEMOGLOBIN 33.7 pg (25.0-35.0); MEAN CORPUSCULAR HGB CONC 35.8 g/dl (31.0-37.0); MEAN PLATELET VOLUME 9.4 fl (7.0-11.0); MONO # 0.8 (0.1-0.6); MONO % 11.5 % (1.0-6.0); RBC 4.63 10^6/uL (3.5-6.1); RED CELL DISTRIBUTION WIDTH 15.5 % (11.5-14.5); WHITE BLOOD COUNT 6.9 10^3/ul (4.5-11.0)
[2018-06-14 05:58] LABS: ALB/GLOB RATIO 1.2 (1.1-1.8); ALBUMIN 4.1 g/dL (3.0-4.8); ALT/SGPT 36 U/L (7-56); AST/SGOT 46 U/L (17-59); BLOOD UREA NITROGEN 11 mg/dL (7-21); CALCIUM 8.9 mg/dL (8.4-10.5); GFR AFRICAN-AMERICAN > 60; GFR NON-AFRICAN AMERICAN > 60
[2018-06-14 07:11] VITALS: O2SAT 98
== END 2018-06-14 07:10 | disposition left against medical advice (07) ==
LOC: ED 04:41
DX: B83.0 Visceral larva migrans (principal)
CPT/HCPCS: 80053; 80320; 85025; 87040; 96374; 99284; J1885

== ENCOUNTER 2018-06-26 08:35 | Emergency (ER) | payer MEDICAID ==
[2018-06-26 08:43] VITALS: BMI 25.1
[2018-06-26 08:49] VITALS: RESP 18; TEMP 98.3
--- NOTE | 2018-06-26 09:12 | ED PDOC ---
Arrival/HPI - General Chief Complaint: Lower Extremity Problem/Injury Time Seen by Provider: 06/26/18 08:57 Historian: Patient - History of Present Illness Narrative History of Present Illness (Text): 06/26/18 09:08 42 year old male, whose past medical history includes hypertension and alcohol abuse, presents to the emergency department with right foot pain, secondary to injury. 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 Patient also states that he has pain in the 2nd and 3rd toes. Patient denies any fever, chills, headache, dizziness, chest pain, shortness of breath, cough, abdominal pain, nausea, vomiting, diarrhea, back pain, neck pain, urinary /bowel changes, or any other complaint. Time/Duration: Prior to Arrival Symptom Onset: Gradual Symptom Course: Unchanged Quality: Aching Activities at Onset: Light Context: Work (works outdoors; landscaping) Past Medical History - Provider Review Nursing Documentation Reviewed: Yes - Infectious Disease Hx of Infectious Diseases: None - Tetanus Immunization Tetanus Immunization: Up to Date - Past Medical History Past Medical History: No Previous - Cardiac Hx Cardiac Disorders: Yes Hx Hypertension: Yes - Pulmonary Hx Tuberculosis: No - Neurological HX Cerebrovascular Accident: No Hx Seizures: No - HEENT Hx HEENT Disorder: No - Renal Hx Renal Disorder: No - Endocrine/Metabolic Hx Endocrine Disorders: No - Hematological/Oncological Hx Cancer: No - Integumentary Hx Dermatological Disorder: No - Musculoskeletal/Rheumatological Hx Musculoskeletal Disorders: No Hx Falls: No - Gastrointestinal Hx Gastrointestinal Disorders: No - Genitourinary/Gynecological Hx Sexually Transmitted Diseases: No - Psychiatric Hx Psychophysiologic Disorder: Yes Hx Depression: Yes Hx Emotional Abuse: No Hx Physical Abuse: No Hx Substance Use: No Other/Comment: SUBSTANCE ABUSE PROBLEM ALCOHOL - Past Surgical History Past Surgical History: No Previous - Anesthesia Hx Anesthesia: Yes Hx Anesthesia Reactions: No Hx Malignant Hyperthermia: No - Suicidal Assessment Feels Threatened In Home Enviroment: No Family/Social History - Physician Review Nursing Documentation Reviewed: Yes Family/Social History: No Known Family HX Smoking Status: Heavy Smoker > 10 Cigarettes Daily Hx Alcohol Use: Yes Amount per day: 3 Hx Substance Use: No Hx Substance Use Treatment: No Allergies/Home Meds Allergies/Adverse Reactions: Allergies cephalexin [From Keflex] Allergy (Verified 06/26/18 08:43) NAUSEA Penicillins Allergy (Verified 06/26/18 08:43) RASH Review of Systems - Physician Review All systems were reviewed & negative as marked: Yes - Review of Systems Constitutional: Normal. absent: Fevers, Night Sweats Eyes: Normal ENT: Normal Respiratory: Normal. absent: SOB, Cough Cardiovascular: Normal. absent: Chest Pain Gastrointestinal: Normal. absent: Abdominal Pain, Diarrhea, Nausea, Vomiting Genitourinary Male: Normal. absent: Urinary Output Changes Musculoskeletal: Other (pain in RLE). absent: Back Pain, Neck Pain Skin: Normal Neurological: Normal. absent: Headache, Dizziness Endocrine: Normal Hemo/Lymphatic: Normal Psychiatric: Normal Physical Exam - Physical Exam Narrative Physical Exam (Text): 06/26/18 09:12 Gen: VS reviewed, alert, well developed, well nourished, nontoxic, mild distress. ENT: normal pharynx. Eye: EOMI, PERRL. Neck: no JVD, supple, no adenopathy. CV: regular rate, regular rhythm, no rubs, no murmur, no gallops, S1, S2, pulses equal and strong. Pulm: no distress, clear to auscultation, no wheeze, no rhonchi, breath sounds equal, no rales. Abd: soft, nontender, no guarding, no rebound, no rigidity, normal bowel sounds. Ext: bruising and swelling right great toe, tenderness without bruising to 2nd and 3rd toes Skin: good color, no rash, no cyanosis. Psych: responds appropriately to questions, normal affect. Neuro: oriented x 3, CN2-12 intact grossly, motor intact, sensation intact. Vital Signs Reviewed: Yes Vital Signs Temp Pulse Resp BP Pulse Ox 06/26/18 08:48 98.3 F 83 18 142/73 97 Temperature: Afebrile Blood Pressure: Normal Pulse: Regular Respiratory Rate: Normal Appearance: Positive for: Well-Appearing, Non-Toxic, Comfortable Pain Distress: None Mental Status: Positive for: Alert and Oriented X 3 Medical Decision Making ED Course and Treatment: 06/26/18 09:14 Impression: 42 year old male presents to the emergency department with right foot pain secondary to injury. Plan: -- X-ray of right foot -- Tylenol -- Toradol -- Reassess and disposition Prior Visits: Notes and results from previous visits were reviewed. Progress Notes: 06/26/18 09:42 contusion to the right foot with soft tissue bruising and swelling. katerina tape to be applied and refer to ortho. patient insists against using surgical shoe. - RAD Interpretation Narrative RAD Interpretations (Text): 06/26/18 09:42 xr my read: no overt fracture or dislocation Radiology Orders: 06/26/18 08:58 FOOT RIGHT 3 VIEWS ROUTINE [RAD] Stat Titrator: ED Physician - Medication Orders Current Medication Orders: Discontinued Medications Acetaminophen (Tylenol 325mg Tab) 975 mg PO STAT STA Stop: 06/26/18 08:59 Last Admin: 06/26/18 09:18 Dose: 975 mg MAR Pain/Vitals Document 06/26/18 09:18 LA (Rec: 06/26/18 09:19 LA [id number]) Pain Reassessment Is This A Pain ReAssessment? No Sleep Is patient sleeping during reassessment? No Presence of Pain Presence of Pain Yes Pain Scale Used Pain Scale Used Numeric Location Left, Right or Bilateral Right Pain Location Body Site Toe Description Intermittent Intensity 4 Scale Used Numeric Ketorolac Tromethamine (Toradol) 30 mg IM STAT STA Stop: 06/26/18 08:59 Last Admin: 06/26/18 09:19 Dose: 30 mg MAR Pain Assessment Document 06/26/18 09:19 LA (Rec: 06/26/18 09:20 LA [id number]) Pain Reassessment Is this a pain reassessment? No Sleep Is patient sleeping during reassessment? No Presence of Pain Presence of Pain Yes Pain Scale Used Pain Scale Used Numeric Location Left, Right or Bilateral Right Pain Location Body Site Great Toe Description Description Intermittent Intensity of Pain at present 4 IM Administration Charges Document 06/26/18 09:19 LA (Rec: 06/26/18 09:20 LA [id number]) Injection Site MAR Injection Site Right Gluteus Kyle Charges for Administration # of IM Administrations 1 - Scribe Statement The provider has reviewed the documentation as recorded by the Scribe Anthony Larry All medical record entries made by the Scribe were at my direction and personally dictated by me. I have reviewed the chart and agree that the record accurately reflects my personal performance of the history, physical exam, medical decision making, and the department course for this patient. I have also personally directed, reviewed, and agree with the discharge instructions and disposition. Disposition/Present on Arrival - Present on Arrival Any Indicators Present on Arrival: No History of DVT/PE: No History of Uncontrolled Diabetes: No Urinary Catheter: No History Surgical Site Infection Following: None - Disposition Have Diagnosis and Disposition been Completed?: Yes Diagnosis: Contusion, foot Disposition: HOME/ ROUTINE Disposition Time: 09:43 Patient Plan: Discharge Condition: GOOD Print Language: POLISH Additional Instructions: BEBA STERN, thank you for letting us take care of you today. Your provider was Dr. Gerard Schmid and you were treated for right foot injury. The emergency medical care you received today was directed at your acute symptoms. If you were prescribed any medication, please fill it and take as directed. It may take several days for your symptoms to resolve. Return to the Emergency Department if your symptoms worsen, do not improve, or if you have any other problems. Please contact your doctor or call one of the physicians/clinics you have been referred to that are listed on the Patient Visit Information form that is included in your discharge packet. Bring any paperwork you were given at discharge with you along with any medications you are taking to your follow up visit. Our treatment cannot replace ongoing medical care by a primary care provider outside of the emergency department. Thank you for allowing the [facility] team to be part of your care today. If you had an X-Ray or CT scan: A Radiologist will review the ED reading if any change in treatment is needed we will contact you. If you had a blood, urine, or wound culture: It will take several days for the results, if any change in treatment is needed we will contact you. If you had an STI test: It will take 48 hours for the results. Please call after 1 week if you have not heard back. Prescriptions: Ibuprofen [Motrin Tab] 600 mg PO QID #42 tab Referrals: Mag Kelly APN-[facility] [Primary Care Provider] - Follow up with primary Jordan Perez DO [Staff Provider] - Follow up with primary Forms: [email or web address] ([place])
[2018-06-26 09:51] VITALS: BP 137/70; PULSE 81; O2SAT 100
--- NOTE | 2018-06-26 10:56 | RAD ---
Date of service: 06/26/2018 PROCEDURE: Right Foot Radiographs. HISTORY: focus great toe, 2nd toe, 3rd toe COMPARISON: None. FINDINGS: BONES: Normal. No fracture. JOINTS: Normal. SOFT TISSUES: Normal. OTHER FINDINGS: None. IMPRESSION: Normal right foot radiographs.
== END 2018-06-26 09:51 | disposition home or self-care (01) ==
LOC: ED 08:35
DX: S90.31XA Contusion of right foot, initial encounter (principal); W22.8XXA Striking against or struck by other objects, initial encounter; Y93.H2 Activity, gardening and landscaping; Y92.89 Other specified places as the place of occurrence of the external cause
CPT/HCPCS: 73630; 96372; 99283; J1885

== ENCOUNTER 2018-08-13 16:26 | Emergency (ER) | payer MEDICAID ==
[2018-08-13 16:27] VITALS: BMI 25.1
[2018-08-13 16:34] VITALS: BP 133/84; PULSE 85; RESP 16; TEMP 98.5; O2SAT 97
--- NOTE | 2018-08-13 16:45 | ED PDOC ---
Arrival/HPI - General Chief Complaint: Abnormal Skin Integrity Time Seen by Provider: 08/13/18 16:36 Historian: Patient - History of Present Illness Narrative History of Present Illness (Text): 08/13/18 17:18 42 y/o male with PMH of HTN and alcohol abuse who presents to the ED c/o left hand lesions x 3 weeks. Pt states that freckles on his hand have turned to bumps over the last 3 weeks. He is concerned about lesions on the dorsum of the left hand and on left 2nd digit. The second lesion just appeared yesterday. Pt is worried about skin cancer because of his family history of cancer. Denies fevers, chills, recent unexpected weight loss, SOB, chest pain, abdominal pain, numbness, paresthesias, weakness. Past Medical History - Provider Review Nursing Documentation Reviewed: Yes - Infectious Disease Hx of Infectious Diseases: None - Tetanus Immunization Tetanus Immunization: Up to Date - Past Medical History Past Medical History: No Previous - Cardiac Hx Cardiac Disorders: Yes Hx Hypertension: Yes - Pulmonary Hx Respiratory Disorders: No - Neurological Hx Neurological Disorder: No - HEENT Hx HEENT Disorder: No - Renal Hx Renal Disorder: No - Endocrine/Metabolic Hx Endocrine Disorders: No - Hematological/Oncological Hx Blood Disorders: No - Integumentary Hx Dermatological Disorder: No - Musculoskeletal/Rheumatological Hx Musculoskeletal Disorders: No - Gastrointestinal Hx Gastrointestinal Disorders: No - Genitourinary/Gynecological Hx Genitourinary Disorders: No - Psychiatric Hx Psychophysiologic Disorder: Yes Hx Depression: Yes Hx Emotional Abuse: No Hx Physical Abuse: No Hx Substance Use: No Other/Comment: SUBSTANCE ABUSE PROBLEM ALCOHOL - Past Surgical History Past Surgical History: No Previous - Anesthesia Hx Anesthesia: Yes Hx Anesthesia Reactions: No Hx Malignant Hyperthermia: No - Suicidal Assessment Feels Threatened In Home Enviroment: No Family/Social History - Physician Review Nursing Documentation Reviewed: Yes Family/Social History: Other (Cancer) Smoking Status: Heavy Smoker > 10 Cigarettes Daily Hx Alcohol Use: Yes Amount per day: 3 Hx Substance Use: No Hx Substance Use Treatment: No Allergies/Home Meds Allergies/Adverse Reactions: Allergies cephalexin [From Keflex] Allergy (Verified 08/13/18 16:28) NAUSEA Penicillins Allergy (Verified 08/13/18 16:28) RASH Home Medications: Home Meds Medication Instructions Recorded Confirmed No Known Home Med 08/13/18 08/13/18 Review of Systems - Physician Review All systems were reviewed & negative as marked: Yes - Review of Systems Constitutional: Normal Eyes: Normal ENT: Normal Respiratory: Normal Cardiovascular: Normal Gastrointestinal: Normal Genitourinary Male: Normal Musculoskeletal: Normal Skin: Skin Lesions Neurological: Normal Endocrine: Normal Hemo/Lymphatic: Normal Physical Exam - Physical Exam Physical Exam Limitations: Other (Pt smells of alcohol) Vital Signs Reviewed: Yes Vital Signs Temp Pulse Resp BP Pulse Ox 08/13/18 16:29 98.5 F 85 16 133/84 97 Temperature: Afebrile Blood Pressure: Normal Pulse: Regular Respiratory Rate: Normal Appearance: Positive for: Well-Appearing, Non-Toxic, Comfortable Pain Distress: None Mental Status: Positive for: Alert and Oriented X 3 - Systems Exam Head: Present: Atraumatic, Normocephalic Pupils: Present: PERRL Extroacular Muscles: Present: EOMI Mouth: Present: Moist Mucous Membranes Respiratory/Chest: Present: Clear to Auscultation, Good Air Exchange. No: Respiratory Distress, Accessory Muscle Use Cardiovascular: Present: Regular Rate and Rhythm, Normal S1, S2. No: Murmurs Back: Present: Normal Inspection Upper Extremity: Present: Normal Inspection Lower Extremity: Present: Normal Inspection Neurological: Present: GCS=15, CN II-XII Intact, Speech Normal Skin: Present: Warm, Dry, Normal Color, Other (Small wart-like lesion on dorsum of left hand. Inflamed, tender hair follicle on left 2nd digit.). No: Rashes Psychiatric: Present: Alert, Oriented x 3, Normal Insight, Normal Concentration Medical Decision Making ED Course and Treatment: 08/13/18 16:54 42 y/o male with PMH of HTN and alcohol abuse who presents to the ED c/o left hand lesions x 3 weeks. Pt states that freckles on his hand have turned to bumps over the last 3 weeks. He is concerned about lesions on the dorsum of the left hand and on left 2nd digit. Pt is worried about skin cancer because of his family history of cancer. Denies fevers, chills, recent unexpected weight loss, SOB, chest pain, abdominal pain, numbness, paresthesias, weakness. Physical Exam: Vitals normal. Pt smells of alcohol. Left hand: Small wart-like lesion on dorsum of left hand. Small, red inflamed hair follicle on 2nd digit, left hand. Otherwise normal hand exam. Normal right hand exam. Normal cardiac and pulmonary exam. Lesions not typical of skin cancer presentation. However, secondary to pts history of new growth, recommend pt to followup with dermatology for biopsy. Will give pt dermatology followup. Educated pt on importance of dermatology followup. 08/13/18 17:10 Impression: Verruca vulgaris Plan: Followup with dermatology for skin check and biopsy Return to ED if symptoms persist or worsen Plan discussed with pt and girlfriend who understand and agree. Pt comfortable with discharge home. 08/13/18 17:17 Disposition/Present on Arrival - Present on Arrival Any Indicators Present on Arrival: No History of DVT/PE: No History of Uncontrolled Diabetes: No Urinary Catheter: No History of Decub. Ulcer: No History Surgical Site Infection Following: None - Disposition Have Diagnosis and Disposition been Completed?: Yes Diagnosis: Verruca vulgaris Disposition: HOME/ ROUTINE Disposition Time: 16:48 Patient Plan: Discharge Condition: GOOD Discharge Instructions (ExitCare): Skin Warts Additional Instructions: Followup with sales floor team leader for skin check and biopsy Return to ED if symptoms persist or worsen Referrals: Angelica Benavidez MD [Staff Provider] - Follow up with primary Jennifer Hills MD [Medical Doctor] - Follow up with primary [facility] [Outside] - Follow up with primary Forms: [facility] ([place]vorian), WORK NOTE
== END 2018-08-13 17:04 | disposition home or self-care (01) ==
LOC: ED 16:26
DX: B07.8 Other viral warts (principal)

== ENCOUNTER 2018-08-22 15:51 | Emergency (ER) | payer OTHER, MEDICAID ==
[2018-08-22 16:20] VITALS: BMI 22.1
[2018-08-22 16:21] VITALS: BP 136/89; PULSE 98; RESP 16; TEMP 98.5; O2SAT 96
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
== END 2018-08-22 16:35 | disposition left against medical advice (07) ==
LOC: ED 15:51
DX: M25.522 Pain in left elbow (principal); V09.9XXA Pedestrian injured in unspecified transport accident, initial encounter; F17.210 Nicotine dependence, cigarettes, uncomplicated; I10 Essential (primary) hypertension; I25.10 Atherosclerotic heart disease of native coronary artery without angina pectoris

== ENCOUNTER 2018-08-22 17:57 | Emergency (ER) | payer OTHER, MEDICAID ==
[2018-08-22 18:12] VITALS: BMI 23.6
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
[2018-08-22 18:37] VITALS: BP 143/89; PULSE 94; RESP 18; TEMP 98.4; O2SAT 97
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
[2018-08-22 19:52] LABS: BASO # 0.09 K/mm3 (0.0-2.0); BASO % 1.9 % (0.0-3.0); EOS # 0.1 (0.0-0.7); GRAN # 1.37 (1.4-6.5); GRAN % 29.2 % (50.0-68.0); HEMOGLOBIN 16.1 g/dL (14.0-18.0); LYMPH # 2.7 (1.2-3.4); LYMPH % 57.4 % (22.0-35.0); MEAN CELL VOLUME 94.7 fl (80.0-105.0); MEAN CORPUSCULAR HEMOGLOBIN 33.1 pg (25.0-35.0); MEAN PLATELET VOLUME 9.1 fl (7.0-11.0); MONO # 0.4 (0.1-0.6); MONO % 8.5 % (1.0-6.0); RBC 4.86 10^6/uL (3.5-6.1); RED CELL DISTRIBUTION WIDTH 15.2 % (11.5-14.5); WHITE BLOOD COUNT 4.7 10^3/ul (4.5-11.0)
[2018-08-22 20:02] LABS: ALB/GLOB RATIO 1.1 (1.1-1.8); ALBUMIN 4.1 g/dL (3.0-4.8); ALT/SGPT 26 U/L (7-56); AST/SGOT 49 U/L (17-59); BLOOD UREA NITROGEN 9 mg/dL (7-21); CALCIUM 8.9 mg/dL (8.4-10.5); GFR NON-AFRICAN AMERICAN > 60
[2018-08-22 20:13] LABS: TROPONIN I 0.02 ng/mL
--- NOTE | 2018-08-23 06:30 | CARD ---
APPROVED REPORT Date of service: 08/22/2018 EKG Measurement Heart [id number] NM [id number] [id number] <Conclusion> Normal sinus rhythm Normal ECG
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
== END 2018-08-22 20:05 | disposition left against medical advice (07) ==
LOC: ED 17:57
DX: M25.521 Pain in right elbow (principal); V09.9XXA Pedestrian injured in unspecified transport accident, initial encounter; I10 Essential (primary) hypertension; I25.10 Atherosclerotic heart disease of native coronary artery without angina pectoris; F17.210 Nicotine dependence, cigarettes, uncomplicated
CPT/HCPCS: 70450; 71101; 73030; 73080; 80053; 82550; 84484; 85025; 93005; 99283; G0480

== ENCOUNTER 2018-12-07 17:31 | Emergency (ER) | payer MEDICAID, OTHER ==
[2018-12-07 17:37] VITALS: BP 132/61; PULSE 111; RESP 18; TEMP 98.2; O2SAT 99; BMI 28.8
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
== END 2018-12-07 18:34 | disposition left against medical advice (07) ==
LOC: ED 17:31
DX: R51 Headache (principal); F17.210 Nicotine dependence, cigarettes, uncomplicated; I10 Essential (primary) hypertension

== ENCOUNTER 2019-01-24 12:04 | Emergency (ER) | payer MEDICAID ==
[2019-01-24 12:13] VITALS: BMI 24.3
[2019-01-24 12:14] VITALS: TEMP 98.1
[2019-01-24] MEDS ORDERED: Multivitamin (MVI) 10 ML, Thiamine 100 MG, Folic Acid 1 MG in Sodium Chloride 0.9% 1,00... IV ONE (12:39)
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
[2019-01-24] MEDS ORDERED: Iohexol 350 MG/100 ML VIAL ONE (13:15)
[2019-01-24 13:23] LABS: BASO # 0.03 K/mm3 (0.0-2.0); BASO % 0.5 % (0.0-3.0); EOS # 0.1 (0.0-0.7); EOS % 2.3 % (1.5-5.0); HEMOGLOBIN 15.6 g/dL (14.0-18.0); LYMPH # 3.3 (1.2-3.4); LYMPH % 60.2 % (22.0-35.0); MEAN CELL VOLUME 93.7 fl (80.0-105.0); MEAN CORPUSCULAR HEMOGLOBIN 31.8 pg (25.0-35.0); MEAN PLATELET VOLUME 9.4 fl (7.0-11.0); MONO # 0.4 (0.1-0.6); MONO % 7.6 % (1.0-6.0); RBC 4.9 10^6/uL (3.5-6.1); WHITE BLOOD COUNT 5.6 10^3/uL (4.5-11.0)
[2019-01-24 13:39] LABS: ALB/GLOB RATIO 1.1 (1.1-1.8); ALBUMIN 4.3 g/dL (3.0-4.8); ALT/SGPT 29 U/L (7-56); AST/SGOT 53 U/L (17-59); BLOOD UREA NITROGEN 12 mg/dL (7-21); GFR NON-AFRICAN AMERICAN > 60
--- NOTE | 2019-01-24 14:32 | CT ---
Date of service: 01/24/2019 PROCEDURE: CT HEAD WITHOUT CONTRAST. HISTORY: Acute headache COMPARISON: Correlation made with concurrent CTA of the brain.. Comparison also made with prior CT scan of the brain 08/22/2018. TECHNIQUE: Axial computed tomography images were obtained through the head/brain without intravenous contrast. Radiation dose: Total exam DLP = 861.8 mGy-cm. This CT exam was performed using one or more of the following dose reduction techniques: Automated exposure control, adjustment of the mA and/or kV according to patient size, and/or use of iterative reconstruction technique. FINDINGS: HEMORRHAGE: No acute parenchymal, subarachnoid or extra-axial hemorrhage. BRAIN: Mild chronic periventricular white matter ischemic changes present. There also a tiny chronic appearing lacunar type infarct left caudate head. Note possibility of a small hyperacute infarct cannot be excluded on this exam.. Another tiny infarct seen in the left superior left [place] radiata on is less well seen on this study as compared to prior CT scan possibly due to differences in patient positioning or slice placement. Mild generalized volume loss. VENTRICLES: No obstructive hydrocephalus CALVARIUM: Calvarium intact however note made of what appear to represent at least 2 tiny small lipoma in the frontal scalp PARANASAL SINUSES: Postoperative changes right nasal cavity and medial wall right maxilla also again seen. Minor mucosal thickening noted within a few right-sided ethmoid air cells MASTOID AIR CELLS: Unremarkable as visualized. No inflammatory changes. OTHER FINDINGS: None. IMPRESSION: No acute intracranial hemorrhage. Mild chronic white matter and left basal ganglia ischemic changes as described. Mild generalized volume loss..
--- NOTE | 2019-01-24 14:38 | CT ---
Date of service: 01/24/2019 PROCEDURE: CT Angiography of the neck and brain with contrast HISTORY: Rule out carotid dissection COMPARISON: None. TECHNIQUE: Contiguous axial images of the neck and brain were obtained from the level of the vertex of the skull to the superior mediastinum in the arteriographic phase of enhancement. Coronal and sagittal reformats or also generated. IV contrast dose: 100 cc Visipaque 350 contrast material. Radiation dose: Total exam DLP = 600.07 mGy-cm. This CT exam was performed using one or more of the following dose reduction techniques: Automated exposure control, adjustment of the mA and/or kV according to patient size, and/or use of iterative reconstruction technique. FINDINGS: The aortic arch is widely patent with minor aortic atherosclerotic calcifications/mural plaque formation. The common carotid arteries are also widely patent throughout with no evidence of occlusion nor significant stenosis despite some very minimal calcified plaque along the left carotid bifurcation.. No evidence of carotid artery dissection.. Tiny calcified plaque seen along the proximal margins of the both internal carotid arteries as well as the distal left internal carotid artery.. No evidence of occlusion significant stenosis or dissection. The petrous and cavernous segments also patent. There are small calcified plaque changes also noted at the cavernous segments with mild narrowing of the right cavernous segment. Supraclinoid segments also patent. The left vertebral artery arises directly from the the aortic arch and is diminutive in caliber throughout compared to the more dominant right vertebral artery. Basilar artery is patent. The visualized major branches of the [id number] are also patent without evidence occlusion nor significant stenosis. The distal branches of the anterior middle and posterior cerebral arteries are also patent and relatively symmetric in appearance. No evidence of large aneurysm nor vascular malformation. OTHER FINDINGS: The there are a few small blebs or minimal paraseptal emphysematous changes seen in the upper lobes bilaterally. IMPRESSION: No evidence of carotid artery dissection. Minor calcified plaque changes seen both carotid bifurcations and internal carotid arteries without significant stenosis.. Calcified plaque noted along the cavernous carotid arteries right greater than left with mild narrowing the right cavernous segment. The left vertebral artery arises directly from the aortic arch and is diminutive in caliber.
[2019-01-24 15:16] VITALS: PULSE 88; RESP 18
[2019-01-24 17:09] VITALS: BP 123/77
[2019-01-24 17:11] VITALS: O2SAT 98
== END 2019-01-24 16:40 | disposition home or self-care (01) ==
LOC: ED 12:04
DX: F10.129 Alcohol abuse with intoxication, unspecified (principal); F17.210 Nicotine dependence, cigarettes, uncomplicated; I10 Essential (primary) hypertension; I25.10 Atherosclerotic heart disease of native coronary artery without angina pectoris
CPT/HCPCS: 70450; 70496; 70498; 80053; 80320; 85025; 96360; 96361; 99284; J3411; J7030; Q9967

== ENCOUNTER 2019-04-04 05:57 | Emergency (ER) | payer MEDICAID ==
[2019-04-04 06:06] VITALS: BMI 19.9
[2019-04-04 06:07] VITALS: BP 126/95; PULSE 98; RESP 18; TEMP 97.7; O2SAT 100
== END 2019-04-04 06:42 | disposition left against medical advice (07) ==
LOC: ED 05:57
DX: Z02.89 Encounter for other administrative examinations (principal); R05 Cough